=== PATIENT | male | born 1975 ===

== ENCOUNTER 2019-03-15 22:48 | Emergency (ER) | payer OTHER ==
[~2019-03-15] VITALS: Ht 175.3 cm; Wt 127.0 kg
[2019-03-15] MEDS ORDERED: GABA300 PO (23:36)
[2019-03-15] MEDS ORDERED: METF500 PO (23:36)
[2019-03-15] MEDS ORDERED: BASAGLAR K100 UNIT/1 SC (23:37)
[2019-03-15] MEDS ORDERED: Zestril40 MG PO (23:37)
[2019-03-15] MEDS ORDERED: NOVOLOG FL100 UNIT/1 SC (23:37)
[2019-03-16 00:04] LABS: BASOPHILS ABSOLUTE AUTO 0.02 K/mm3 (0.00-0.23); BASOPHILS PERCENT AUTO 0 % (0-2); EOSINOPHILS ABSOLUTE AUTO 0.03 K/mm3 (0.00-0.68); EOSINOPHILS PERCENT AUTO 0 % (0-6); Hematocrit 42.9 % (37.0-53.0); Hemoglobin 13.6 g/dL (13.5-17.5); IMMATURE GRAN ABSOLUTE AUTO 0.06 K/mm3 (0.00-0.10); IMMATURE GRAN PERCENT AUTO 1 % (0-1); LYMPHOCYTES ABSOLUTE AUTO 2.97 K/mm3 (0.84-5.20); LYMPHOCYTES PERCENT AUTO 25 % (21-46); MONOCYTES ABSOLUTE AUTO 0.98 K/mm3 (0.16-1.47); MONOCYTES PERCENT AUTO 8 % (4-13); Mean Corpuscular HGB 28.3 pg (26.0-34.0); Mean Corpuscular HGB Conc 31.7 g/dL (31.5-36.5); Mean Corpuscular Volume 89 fL (80-100); Mean Platelet Volume 10.2 fL (9.1-12.4); NEUTROPHILS ABSOLUTE AUTO 7.92 K/mm3 (1.96-9.15); NEUTROPHILS PERCENT AUTO 66 % (41-73); Platelet Count 367 K/mm3 (150-400); RDW Coefficient Variation 12.6 % (11.7-14.2); RDW Standard Deviation 41.5 fL (35.1-46.3); Red Blood Cell Count 4.81 M/mm3 (4.30-5.90); White Blood Cell Count 11.98 K/mm3 (4.00-11.30)
[2019-03-16 00:23] LABS: Alanine Aminotransfer (ALT/SGP 21 U/L (12-78); Albumin, Blood 2.8 g/dL (3.4-5.0); Albumin/Globulin Ratio 0.5 (0.8-1.8); Alk Phos 88 U/L (50-136); Anion Gap 7 mmol/L (6-16); Aspartate Aminotrans (AST/SGOT 16 U/L (12-37); Beta-hydroxybutyrate 1.1 mg/dL (0.2-2.8); Bilirubin, Total 0.6 mg/dL (0.1-1.0); Blood Urea Nitrogen 27 mg/dL (8-24); Bun/Creatinine Ratio 27.4 (12.0-20.0); CO2, Blood 28 mmol/L (21-32); Calcium, Blood 9.4 mg/dL (8.5-10.1); Chloride, Blood 100 mmol/L (98-108); Creatinine, Blood 0.98 mg/dL (0.60-1.20); Globulin, Blood 5.1 g/dL (2.2-4.0); Glomerular Filtration Rate >60 (60-); Glucose, Blood 337 mg/dL (70-99); Potassium, Blood 4.6 mmol/L (3.5-5.5); Sodium, Blood 135 mmol/L (136-145); Total Protein, Blood 7.9 g/dL (6.4-8.2)
[2019-03-16 03:48] LABS: Source, Urine Clean Catch
[2019-03-16 03:52] LABS: Bilirubin, Urine Neg (Neg); Blood, Urine Neg (Neg); Glucose Qualitative, Urine 4+ (Neg); Ketones, Urine 1+ (Neg); Leukocyte Esterase, Urine 1+ (Neg); Nitrite, Urine Neg (Neg); Protein, Urine 3+ (Neg); Urobilinogen, Urine 1+ (Normal)
[2019-03-16 04:01] LABS: Appearance, Urine Clear (Clear); Color, Urine Yellow (P-Yellow)
[2019-03-16 04:02] LABS: Bacteria Few /hpf; Red Blood Cells, Urine Not Seen /hpf (0-2); Squamous Epithelial Cells Few /hpf (Few); White Blood Cells, Urine 0-2 /hpf (0-5)
[2019-03-16] MEDS ORDERED: CEPH500 PO (04:35)
[2019-05-20] MEDS ORDERED: INSULIN BASAGLAR SC (12:03)
== END 2019-03-16 05:20 | disposition home or self-care (01) ==
LOC: ER 22:48
PROVIDERS: Emergency Medicine
DX: E11.621 Type 2 diabetes mellitus with foot ulcer (principal); L97.519 Non-pressure chronic ulcer of other part of right foot with unspecified severity; L03.115 Cellulitis of right lower limb; E11.65 Type 2 diabetes mellitus with hyperglycemia; I10 Essential (primary) hypertension; F17.200 Nicotine dependence, unspecified, uncomplicated; Z79.4 Long term (current) use of insulin
CPT/HCPCS: 73630; 80053; 81001; 82010; 82947; 85025; 87086; 96365; 99283-25; J1815; J3370

== ENCOUNTER 2019-03-18 11:43 | Inpatient (IN) | payer OTHER ==
[~2019-03-18] VITALS: Ht 175.3 cm; Wt 127.0 kg
[~2019-03-18 11:43] MED LIST: BASAGLAR K100 UNIT/1 SC; CEPH500 PO; GABA300 PO; METF500 PO; NOVOLOG FL100 UNIT/1 SC; Zestril40 MG PO
[2019-03-18 12:11] LABS: BASOPHILS ABSOLUTE AUTO 0.04 K/mm3 (0.00-0.23); BASOPHILS PERCENT AUTO 0 % (0-2); EOSINOPHILS ABSOLUTE AUTO 0.07 K/mm3 (0.00-0.68); EOSINOPHILS PERCENT AUTO 1 % (0-6); Hematocrit 39.7 % (37.0-53.0); Hemoglobin 12.9 g/dL (13.5-17.5); IMMATURE GRAN PERCENT AUTO 1 % (0-1); LYMPHOCYTES ABSOLUTE AUTO 2.53 K/mm3 (0.84-5.20); LYMPHOCYTES PERCENT AUTO 18 % (21-46); MONOCYTES ABSOLUTE AUTO 0.95 K/mm3 (0.16-1.47); MONOCYTES PERCENT AUTO 7 % (4-13); Mean Corpuscular HGB 28.5 pg (26.0-34.0); Mean Corpuscular HGB Conc 32.5 g/dL (31.5-36.5); Mean Corpuscular Volume 88 fL (80-100); Mean Platelet Volume 9.9 fL (9.1-12.4); NEUTROPHILS ABSOLUTE AUTO 10.21 K/mm3 (1.96-9.15); NEUTROPHILS PERCENT AUTO 74 % (41-73); Platelet Count 398 K/mm3 (150-400); RDW Coefficient Variation 12.3 % (11.7-14.2); RDW Standard Deviation 39.7 fL (35.1-46.3); Red Blood Cell Count 4.52 M/mm3 (4.30-5.90)
[2019-03-18] MEDS ORDERED: Rocephin 1g1 G/50 ML IV (12:12)
[2019-03-18] MEDS ORDERED: Percocet 5-3251 EACH PO (12:20)
[2019-03-18] MEDS ORDERED: NAPR550 PO (12:20)
[2019-03-18 12:23] LABS: Alanine Aminotransfer (ALT/SGP 17 U/L (12-78); Albumin, Blood 2.4 g/dL (3.4-5.0); Albumin/Globulin Ratio 0.5 (0.8-1.8); Alk Phos 86 U/L (50-136); Anion Gap 8 mmol/L (6-16); Aspartate Aminotrans (AST/SGOT 13 U/L (12-37); Bilirubin, Total 0.8 mg/dL (0.1-1.0); Blood Urea Nitrogen 18 mg/dL (8-24); Bun/Creatinine Ratio 21.4 (12.0-20.0); CO2, Blood 25 mmol/L (21-32); Calcium, Blood 9.4 mg/dL (8.5-10.1); Chloride, Blood 98 mmol/L (98-108); Creatinine, Blood 0.84 mg/dL (0.60-1.20); Globulin, Blood 5.2 g/dL (2.2-4.0); Glomerular Filtration Rate >60 (60-); Glucose, Blood 295 mg/dL (70-99); Potassium, Blood 4.5 mmol/L (3.5-5.5); Sodium, Blood 131 mmol/L (136-145); Total Protein, Blood 7.6 g/dL (6.4-8.2)
--- NOTE | 2019-03-18 17:53 | NUR ---
1433 PT ADMITTED TO MEDICAL FLOOR VIA W/C, GIRLFRIEND AT BEDSIDE. ASSESSMENT REVEALS ONE WOUND TO EACH PLANTAR. R WOUND APPEARS MORE ACUTE, SURROUNGING TISSUE WITH EDEMA AND REDNESS, BOARDERS OUTLINED IN ER. L HEEL WOUND IS CHRONIC APPEARING, PT REPORTS THAT IT BEGAN SOMETIME IN JULY OF LAST YEAR. A&OX4, INDEPENENT IN ROOM. SPOKEWITH DR. ESTEVES IN THE [place], REVIEVED VERBAL ORDER FOR PODIATRY CONSULT, CONSULT CALLED IN TO DR. MCNALLY'S CELL PHONE.
[2019-03-19 04:57] LABS: BASOPHILS ABSOLUTE AUTO 0.04 K/mm3 (0.00-0.23); BASOPHILS PERCENT AUTO 0 % (0-2); EOSINOPHILS ABSOLUTE AUTO 0.19 K/mm3 (0.00-0.68); EOSINOPHILS PERCENT AUTO 2 % (0-6); Hematocrit 36.4 % (37.0-53.0); Hemoglobin 11.6 g/dL (13.5-17.5); IMMATURE GRAN ABSOLUTE AUTO 0.08 K/mm3 (0.00-0.10); IMMATURE GRAN PERCENT AUTO 1 % (0-1); LYMPHOCYTES ABSOLUTE AUTO 2.43 K/mm3 (0.84-5.20); LYMPHOCYTES PERCENT AUTO 26 % (21-46); MONOCYTES ABSOLUTE AUTO 0.82 K/mm3 (0.16-1.47); MONOCYTES PERCENT AUTO 9 % (4-13); Mean Corpuscular HGB 28.4 pg (26.0-34.0); Mean Corpuscular HGB Conc 31.9 g/dL (31.5-36.5); Mean Corpuscular Volume 89 fL (80-100); Mean Platelet Volume 9.8 fL (9.1-12.4); NEUTROPHILS ABSOLUTE AUTO 5.84 K/mm3 (1.96-9.15); NEUTROPHILS PERCENT AUTO 62 % (41-73); Platelet Count 377 K/mm3 (150-400); RDW Coefficient Variation 12.5 % (11.7-14.2); RDW Standard Deviation 40.3 fL (35.1-46.3); Red Blood Cell Count 4.09 M/mm3 (4.30-5.90)
--- NOTE | 2019-03-19 05:06 | NUR ---
SHIFT SUMMARY HOSPITALIST IN TO SEE PT AND WRITE ORDERS. PT HAS BEEN NPO AFTER MIDNIGHT. PT SLEPT FAIR. PT ALERT AND ORIENTED. SUPERVISOR FINISH END TO COME IN THIS AM. NO ACUTE EVENTS NOTED DURING THE NIGHT, WILL CONTINUE TO MONITOR.
[2019-03-19 05:11] LABS: International Normalized Ratio 1.07; Prothrombin Time Results 11.3 Sec (9.7-11.5)
[2019-03-19 05:21] LABS: Anion Gap 6 mmol/L (6-16); Blood Urea Nitrogen 21 mg/dL (8-24); Bun/Creatinine Ratio 18.1 (12.0-20.0); CHOL/HDL RATIO 5.1; CO2, Blood 27 mmol/L (21-32); Calcium, Blood 8.4 mg/dL (8.5-10.1); Chloride, Blood 103 mmol/L (98-108); Cholesterol 107 mg/dL (50-200); Creatinine, Blood 1.16 mg/dL (0.60-1.20); Glomerular Filtration Rate >60 (60-); Glucose, Blood 256 mg/dL (70-99); HDL Cholesterol 21 mg/dL (>39); LDL/HDL RATIO 2.8; Low Density Lipoprotein Chol 58 mg/dL (0-110); Potassium, Blood 4.4 mmol/L (3.5-5.5); Sodium, Blood 136 mmol/L (136-145); Triglycerides 138 mg/dL (30-160); Very Low Density Lipoprot Chol 27 mg/dL (6-32)
[2019-03-19 13:12] LABS: U Amphetamine Screen DETECTED; U Barbituate Screen Not Detected; U Benzodiazapine Screen Not Detected; U Buprenorphine Screen Not Detected; U Cannabinoids Screen Not Detected; U Cocaine Screen Not Detected; U Methadone Screen Not Detected; U Methamphetamine Screen DETECTED; U Opiates Screen Not Detected; U Oxycodone Screen Not Detected; U Phencyclidine Screen Not Detected; U Propoxyphene Screen Not Detected
--- NOTE | 2019-03-19 18:58 | NUR ---
PT. SLEEPING, HAS BEEN EXTREMELY SLEEPY THIS SHIFT. TOX SCREEN SHOWED POSITIVE FOR AMPHETAMINE AND METHAMPHETIMINE. DR. FOWLER NOTIFIED ME HE WOULD PROBABLY DO THE DEBRIDING AT BEDSIDE IN AM. IF UNABLE TO PLEASE MAKE PATIENT NPO AFTER MIDNOC TONIGHT. WOUND HAS S/S OOZING AND DECUB NOTED ON BALL OF RIGHT FOOT AND HEEL OF LEFT FOOT.
--- NOTE | 2019-03-20 07:54 | NUR ---
NOC SHIFT SUMMARY PT PLEASANT AND COOPERATIVE WITH CARE. AAOX4. NO COMPLAINTS THIS NIGHT. SLEPT MUCH OF NIGHT. HAS BEEN NPO EXCEPT SIPS OF WATER SINCE MIDNIGHT. VSS. REPORT ON ONCOMING RN.
[2019-03-20 09:41] LABS: Creatinine, Blood 1.31 mg/dL (0.60-1.20)
[2019-03-20 16:26] LABS: Vancomycin, Random 15.6 ug/mL
--- NOTE | 2019-03-20 18:34 | NUR ---
PT. SITTING ON EDGE OF BED WITH SURGICAL SHOE IN PLACE. DR. MCNALLY CAME IN DID SOME DEBRIDING ON THE DECUB. COVERED WITH XEROFORM GAUZE, KERLIX AND MAURY WRAP. SUGGESTED OUTPT. WOUND CARE DOWNSTAIRS WELL ONGOING ANTIBIOTICS. LANTUS ADDED TODAY WELL 5 UNITS HUMALOG WITH MEALS AND MEDIUM S.S. AC/HS. DOES NOT SEEM TO HAVE MADE MUCH DIFFERENCE IN BLOOD SUGARS. NO OTHER NOTEABLE CHANGES THIS SHIFT.
--- NOTE | 2019-03-21 04:46 | NUR ---
SHIFT SUMMARY: PT IS ALERT AND ORIENTED. PT IS CALM AND COOPERATIVE WITH CARE. PT CALLS APPROPRIATELY. PT IS INDEPENDENT IN THE ROOM. PT DENIES PAIN, NAUSEA, VOMITING, AND SOB. PT SLEPT MUCH OF THE NIGHT WHEN NOT DISTURBED. FLUIDS RUNNING ORDERED. NO ACUTE CHANGES OR COMPLICATIONS. BED IN LOW POSITION, CALL LIGHT WITHIN REACH. WILL REPORT TO DAY NURSE.
[2019-03-21 11:35] LABS: Creatinine, Blood 1.39 mg/dL (0.60-1.20); Vancomycin, Trough 15.8 ug/mL (5.0-10.0)
[2019-03-21 12:19] LABS: BASOPHILS ABSOLUTE AUTO 0.04 K/mm3 (0.00-0.23); BASOPHILS PERCENT AUTO 1 % (0-2); EOSINOPHILS ABSOLUTE AUTO 0.24 K/mm3 (0.00-0.68); EOSINOPHILS PERCENT AUTO 3 % (0-6); Hematocrit 37.3 % (37.0-53.0); Hemoglobin 11.7 g/dL (13.5-17.5); IMMATURE GRAN ABSOLUTE AUTO 0.05 K/mm3 (0.00-0.10); IMMATURE GRAN PERCENT AUTO 1 % (0-1); LYMPHOCYTES ABSOLUTE AUTO 2.24 K/mm3 (0.84-5.20); LYMPHOCYTES PERCENT AUTO 25 % (21-46); MONOCYTES ABSOLUTE AUTO 0.65 K/mm3 (0.16-1.47); MONOCYTES PERCENT AUTO 7 % (4-13); Mean Corpuscular HGB 28.3 pg (26.0-34.0); Mean Corpuscular HGB Conc 31.4 g/dL (31.5-36.5); Mean Corpuscular Volume 90 fL (80-100); Mean Platelet Volume 9.4 fL (9.1-12.4); NEUTROPHILS ABSOLUTE AUTO 5.65 K/mm3 (1.96-9.15); NEUTROPHILS PERCENT AUTO 64 % (41-73); Platelet Count 423 K/mm3 (150-400); RDW Coefficient Variation 12.4 % (11.7-14.2); RDW Standard Deviation 40.9 fL (35.1-46.3); Red Blood Cell Count 4.14 M/mm3 (4.30-5.90); White Blood Cell Count 8.87 K/mm3 (4.00-11.30)
[2019-03-21 12:35] LABS: Anion Gap 5 mmol/L (6-16); Blood Urea Nitrogen 15 mg/dL (8-24); CO2, Blood 25 mmol/L (21-32); Calcium, Blood 7.9 mg/dL (8.5-10.1); Chloride, Blood 110 mmol/L (98-108); Creatinine, Blood 1.36 mg/dL (0.60-1.20); Glomerular Filtration Rate >60 (60-); Glucose, Blood 215 mg/dL (70-99); Potassium, Blood 4.1 mmol/L (3.5-5.5); Sodium, Blood 140 mmol/L (136-145)
[2019-03-21] MEDS ORDERED: Augmentin 875-1 EACH PO (17:40)
[2019-03-21] MEDS ORDERED: LACT PO (17:40)
[2019-03-21] MEDS ORDERED: Bactrim Ds Tab1 EACH PO (17:41)
[2019-03-21] MEDS ORDERED: Tylenol325 MG PO (17:44)
--- NOTE | 2019-03-21 18:32 | NUR ---
PATIENT D/C'D TO HOME WITH FAMILY. RX MEDICATIONS FAXED TO [facility]. D/C INSTRUCTIONS AND EDUCATION DISCUSSED WITH PATIENT AND COPY PROVIDED. WOUND CLINIC APPT MADE FOR Monday03/26/19 AT 0730. PHYSICIAN CODER NOTIFIED THAT PATIENT WILL NEED FOLLOW UP APPTS MADE WITH [facility] TECHNICAL SERVICES SPECIALIST. PATIENT DENIES ANY FURTHER QUESTIONS OR CONCERNS.
[2019-05-20] MEDS ORDERED: INSULIN BASAGLAR SC (12:03)
== END 2019-03-21 18:32 | disposition home or self-care (01) | DRG 638 ==
LOC: ER 11:43 → MEDS 12:36 → ENPENDDIS 03-21 16:43 → MEDS 03-21 18:32
PROVIDERS: Emergency Medicine; Internal Medicine; Nurse Practitioner Acute Care; Pharmacist; ADMIT Internal Medicine
PROC: 0HDMXZZ Extraction of Right Foot Skin, External Approach (ICD-10-PCS; principal; 2019-03-20)
DX: E11.621 Type 2 diabetes mellitus with foot ulcer (principal); Z68.41 Body mass index [BMI] 40.0-44.9, adult; L97.413 Non-pressure chronic ulcer of right heel and midfoot with necrosis of muscle; E11.42 Type 2 diabetes mellitus with diabetic polyneuropathy; I10 Essential (primary) hypertension; E78.5 Hyperlipidemia, unspecified; E66.01 Morbid (severe) obesity due to excess calories; L03.031 Cellulitis of right toe; Z79.84 Long term (current) use of oral hypoglycemic drugs; Z79.4 Long term (current) use of insulin; Z79.899 Other long term (current) drug therapy
CPT/HCPCS: 36415; 73630; 73720; 80048; 80053; 80061; 80202; 82565; 82947; 83036; 85025; 85610; 85651; 86140; 87040; 96374; 96375; 99284-25; A9270; A9577; J1170; J2543; J3370; J7030; J7050

== ENCOUNTER 2019-03-23 14:31 | Emergency (ER) | payer OTHER ==
[~2019-03-23] VITALS: Ht 175.3 cm; Wt 131.5 kg
[~2019-03-23 14:31] MED LIST changes: -INSULIN BASAGLAR SC; -Zofran4 MG PO
[2019-03-23] MEDS ORDERED: Zofran4 MG PO (17:43)
[2019-05-20] MEDS ORDERED: INSULIN BASAGLAR SC (12:03)
== END 2019-03-23 18:14 | disposition home or self-care (01) ==
LOC: ER 14:31
DX: E11.621 Type 2 diabetes mellitus with foot ulcer (principal); L97.509 Non-pressure chronic ulcer of other part of unspecified foot with unspecified severity; R19.7 Diarrhea, unspecified; R11.2 Nausea with vomiting, unspecified; I10 Essential (primary) hypertension; Z79.4 Long term (current) use of insulin; Z79.899 Other long term (current) drug therapy
CPT/HCPCS: 96361; 96374; 99283-25; J2405; J7030

== ENCOUNTER → 2019-03-23 | Outpatient (CLI) | payer OTHER ==
[~2019-03-23] MED LIST changes: +Augmentin 875-1 EACH PO; +Bactrim Ds Tab1 EACH PO; +INSULIN BASAGLAR SC; +LACT PO; +NAPR550 PO; +Percocet 5-3251 EACH PO; +Rocephin 1g1 G/50 ML IV; +Tylenol325 MG PO; +Zofran4 MG PO
[2019-03-23 13:41] LABS: BASOPHILS ABSOLUTE AUTO 0.03 K/mm3 (0.00-0.23); BASOPHILS PERCENT AUTO 0 % (0-2); EOSINOPHILS PERCENT AUTO 2 % (0-6); Hematocrit 37.6 % (37.0-53.0); Hemoglobin 12.4 g/dL (13.5-17.5); IMMATURE GRAN ABSOLUTE AUTO 0.05 K/mm3 (0.00-0.10); IMMATURE GRAN PERCENT AUTO 1 % (0-1); LYMPHOCYTES ABSOLUTE AUTO 1.94 K/mm3 (0.84-5.20); LYMPHOCYTES PERCENT AUTO 20 % (21-46); MONOCYTES ABSOLUTE AUTO 0.53 K/mm3 (0.16-1.47); MONOCYTES PERCENT AUTO 6 % (4-13); Mean Corpuscular HGB 28.4 pg (26.0-34.0); Mean Platelet Volume 9.2 fL (9.1-12.4); NEUTROPHILS ABSOLUTE AUTO 6.74 K/mm3 (1.96-9.15); NEUTROPHILS PERCENT AUTO 71 % (41-73); Platelet Count 477 K/mm3 (150-400); RDW Coefficient Variation 12.4 % (11.7-14.2); RDW Standard Deviation 39.4 fL (35.1-46.3); Red Blood Cell Count 4.36 M/mm3 (4.30-5.90); White Blood Cell Count 9.49 K/mm3 (4.00-11.30)
[2019-03-23 13:44] LABS: Mean Corpuscular Volume 86 fL (80-100)
[2019-03-23 13:49] LABS: Albumin, Blood 2.4 g/dL (3.4-5.0); Albumin/Globulin Ratio 0.4 (0.8-1.8); Bilirubin, Total 0.5 mg/dL (0.1-1.0); Bun/Creatinine Ratio 7.9 (12.0-20.0); Creatinine, Blood 1.52 mg/dL (0.60-1.20); Globulin, Blood 5.7 g/dL (2.2-4.0); Potassium, Blood 4.5 mmol/L (3.5-5.5); Total Protein, Blood 8.1 g/dL (6.4-8.2)
== END | disposition home or self-care (01) ==
LOC: LAB EV 13:32 → LAB SHORT 13:32
PROVIDERS: Physician Assistant
DX: R10.9 Unspecified abdominal pain (principal)
CPT/HCPCS: 80053; 85025

== ENCOUNTER 2019-03-26 07:40 | Day surgery (SDC) | payer OTHER ==
[~2019-03-26 07:40] MED LIST changes: +Zofran4 MG PO
[2019-05-20] MEDS ORDERED: INSULIN BASAGLAR SC (12:03)
== END 2019-03-26 23:00 | disposition home or self-care (01) ==
LOC: WOUND 07:40
DX: E11.621 Type 2 diabetes mellitus with foot ulcer (principal); L97.512 Non-pressure chronic ulcer of other part of right foot with fat layer exposed; L97.412 Non-pressure chronic ulcer of right heel and midfoot with fat layer exposed; E11.42 Type 2 diabetes mellitus with diabetic polyneuropathy; I10 Essential (primary) hypertension; E78.5 Hyperlipidemia, unspecified; Z87.891 Personal history of nicotine dependence
CPT/HCPCS: G0463

== ENCOUNTER 2019-04-11 00:10 | Day surgery (SDC) | payer OTHER ==
[2019-05-20] MEDS ORDERED: INSULIN BASAGLAR SC (12:03)
== END 2019-04-11 22:46 | disposition home or self-care (01) ==
LOC: WOUND 00:10
DX: E11.621 Type 2 diabetes mellitus with foot ulcer (principal); L97.519 Non-pressure chronic ulcer of other part of right foot with unspecified severity; E11.42 Type 2 diabetes mellitus with diabetic polyneuropathy; I10 Essential (primary) hypertension; E78.5 Hyperlipidemia, unspecified
CPT/HCPCS: G0463

== ENCOUNTER 2019-04-18 13:20 | Day surgery (SDC) | payer OTHER ==
[2019-05-20] MEDS ORDERED: INSULIN BASAGLAR SC (12:03)
== END 2019-04-18 23:05 | disposition home or self-care (01) ==
LOC: WOUND 13:20
DX: E11.621 Type 2 diabetes mellitus with foot ulcer (principal); L97.513 Non-pressure chronic ulcer of other part of right foot with necrosis of muscle; E11.42 Type 2 diabetes mellitus with diabetic polyneuropathy; I10 Essential (primary) hypertension; E78.5 Hyperlipidemia, unspecified
CPT/HCPCS: 87071; 87075; 87076; 87102; 87185; 87205

== ENCOUNTER 2019-04-25 13:33 | Day surgery (SDC) | payer OTHER ==
[2019-05-20] MEDS ORDERED: INSULIN BASAGLAR SC (12:03)
== END 2019-04-25 23:29 | disposition home or self-care (01) ==
LOC: WOUND 13:33
DX: E11.621 Type 2 diabetes mellitus with foot ulcer (principal); L97.513 Non-pressure chronic ulcer of other part of right foot with necrosis of muscle; I10 Essential (primary) hypertension; E78.5 Hyperlipidemia, unspecified; E11.42 Type 2 diabetes mellitus with diabetic polyneuropathy

== ENCOUNTER 2019-05-02 13:31 | Day surgery (SDC) | payer OTHER ==
[2019-05-20] MEDS ORDERED: INSULIN BASAGLAR SC (12:03)
== END 2019-05-02 23:36 | disposition home or self-care (01) ==
LOC: WOUND 13:31
DX: E11.621 Type 2 diabetes mellitus with foot ulcer (principal); L97.518 Non-pressure chronic ulcer of other part of right foot with other specified severity; E11.42 Type 2 diabetes mellitus with diabetic polyneuropathy; I10 Essential (primary) hypertension; E78.5 Hyperlipidemia, unspecified
CPT/HCPCS: G0463

== ENCOUNTER 2019-05-09 00:15 | Day surgery (SDC) | payer OTHER ==
[2019-05-20] MEDS ORDERED: INSULIN BASAGLAR SC (12:03)
== END 2019-05-09 22:45 | disposition home or self-care (01) ==
LOC: WOUND 00:15
DX: E11.621 Type 2 diabetes mellitus with foot ulcer (principal); L97.518 Non-pressure chronic ulcer of other part of right foot with other specified severity; E11.42 Type 2 diabetes mellitus with diabetic polyneuropathy; I10 Essential (primary) hypertension; E78.5 Hyperlipidemia, unspecified
CPT/HCPCS: G0463

== ENCOUNTER 2019-05-16 00:33 | Day surgery (SDC) | payer OTHER ==
[2019-05-20] MEDS ORDERED: INSULIN BASAGLAR SC (12:03)
== END 2019-05-16 23:30 | disposition home or self-care (01) ==
LOC: WOUND 00:33
DX: E11.621 Type 2 diabetes mellitus with foot ulcer (principal); L97.513 Non-pressure chronic ulcer of other part of right foot with necrosis of muscle; E11.42 Type 2 diabetes mellitus with diabetic polyneuropathy; I10 Essential (primary) hypertension; E78.5 Hyperlipidemia, unspecified

== ENCOUNTER 2019-05-21 12:50 | Day surgery (SDC) | payer OTHER ==
[~2019-05-21 12:50] MED LIST changes: +INSULIN BASAGLAR SC
--- NOTE | 2019-05-21 14:27 | NUR ---
History, Chart, Medications and Allergies reviewed before start of procedure. Patient States Post-Procedure ride home has been arranged.
--- NOTE | 2019-05-21 15:36 | NUR ---
05/21/19 1536 Violet Khan ALL COUNTS CORRECT.
--- NOTE | 2019-05-21 16:40 | NUR ---
FROM PACU TO [facility] VSS LOW BP COMPLAINTS OF FEELING HOT PLACED A FANBLOWING ON PATIENT
--- NOTE | 2019-05-21 17:51 | NUR ---
CALLED AND TALKED TO DR ALVAREZ ABOUT LOW BP. STATES IF PATIENT REMAIN UN SYMPTOMATIC AFTER GIVING 500 CC BOLUS MAY DISCHARGE HOME. ALSO TO SIT APTIENT UP AND GET HIM TO HYDRATE.
--- NOTE | 2019-05-21 18:14 | NUR ---
PT UP TO WHEELCHAIR, TOLERATED WELL. VSS. DENIES NO DIZZINESS. STABLE. Discharge instructions reviewed with patient. Patient verbalizes understanding. Copy given to patient to take home. Dressing to procedure site clean, dry, intact with no visible drainage, swelling, erythema or bruising noted. Patient States Post-Procedure ride home has been arranged. Discharged via wheelchair to private car for ride home.
== END 2019-05-21 18:14 | disposition home or self-care (01) ==
LOC: ORSCMMR 12:50 → ORSCSDS 14:00 → ORSCMMR 14:30 → ORSCSDS 14:30 → ORSCMMR 18:14
PROVIDERS: Podiatrist Foot & Ankle Surgery
PROC: 0Y6M0ZB Detachment at Right Foot, Partial 2nd Ray, Open Approach (ICD-10-PCS; principal; 2019-05-21 14:30)
PROC: 0Y6M0ZD Detachment at Right Foot, Partial 4th Ray, Open Approach (ICD-10-PCS; principal; 2019-05-21 14:30)
PROC: 0Y6M0Z9 Detachment at Right Foot, Partial 1st Ray, Open Approach (ICD-10-PCS; principal; 2019-05-21 14:30)
PROC: 0Y6M0ZF Detachment at Right Foot, Partial 5th Ray, Open Approach (ICD-10-PCS; principal; 2019-05-21 14:30)
PROC: 0Y6M0ZC Detachment at Right Foot, Partial 3rd Ray, Open Approach (ICD-10-PCS; principal; 2019-05-21 14:30)
DX: L03.031 Cellulitis of right toe (principal); L89.893 Pressure ulcer of other site, stage 3; E11.65 Type 2 diabetes mellitus with hyperglycemia; E11.40 Type 2 diabetes mellitus with diabetic neuropathy, unspecified; E11.621 Type 2 diabetes mellitus with foot ulcer; I10 Essential (primary) hypertension; E78.5 Hyperlipidemia, unspecified; Z79.4 Long term (current) use of insulin; Z79.899 Other long term (current) drug therapy; E66.01 Morbid (severe) obesity due to excess calories; Z68.41 Body mass index [BMI] 40.0-44.9, adult; Z87.891 Personal history of nicotine dependence
CPT/HCPCS: 82947; 88307; 88311; J0690; J2250; J2370; J2405; J2704; J2765; J3010; J7120

== ENCOUNTER 2019-06-28 08:47 | Day surgery (SDC) | payer OTHER | END 2019-06-28 23:50 | disposition home or self-care (01) | LOC: WOUND | DX: T87.81 Dehiscence of amputation stump (principal); I10 Essential (primary) hypertension; E11.42 Type 2 diabetes mellitus with diabetic polyneuropathy; E11.621 Type 2 diabetes mellitus with foot ulcer; L97.509 Non-pressure chronic ulcer of other part of unspecified foot with unspecified severity; E78.5 Hyperlipidemia, unspecified; Z79.4 Long term (current) use of insulin; Z87.891 Personal history of nicotine dependence; Y83.8 Other surgical procedures as the cause of abnormal reaction of the patient, or of later complication, without mention of misadventure at the time of the procedure | CPT/HCPCS: G0463 ==

== ENCOUNTER 2019-07-01 08:00 | Day surgery (SDC) | payer OTHER | END 2019-07-01 22:57 | disposition home or self-care (01) | LOC: WOUND 08:00 | DX: T87.81 Dehiscence of amputation stump (principal); T87.53 Necrosis of amputation stump, right lower extremity; E11.621 Type 2 diabetes mellitus with foot ulcer; L97.512 Non-pressure chronic ulcer of other part of right foot with fat layer exposed; E11.52 Type 2 diabetes mellitus with diabetic peripheral angiopathy with gangrene; I96 Gangrene, not elsewhere classified; I10 Essential (primary) hypertension; E11.42 Type 2 diabetes mellitus with diabetic polyneuropathy; E78.5 Hyperlipidemia, unspecified; Z79.899 Other long term (current) drug therapy; Z79.4 Long term (current) use of insulin; Y83.5 Amputation of limb(s) as the cause of abnormal reaction of the patient, or of later complication, without mention of misadventure at the time of the procedure ==

== ENCOUNTER 2019-07-03 00:30 | Day surgery (SDC) | payer OTHER | END 2019-07-03 23:05 | disposition home or self-care (01) | LOC: WOUND 00:30 | DX: T87.81 Dehiscence of amputation stump (principal); E11.621 Type 2 diabetes mellitus with foot ulcer; L97.515 Non-pressure chronic ulcer of other part of right foot with muscle involvement without evidence of necrosis; E11.40 Type 2 diabetes mellitus with diabetic neuropathy, unspecified; I10 Essential (primary) hypertension ==

== ENCOUNTER 2019-07-05 00:41 | Day surgery (SDC) | payer OTHER | END 2019-07-05 23:27 | disposition home or self-care (01) | LOC: WOUND 00:41 | DX: T87.81 Dehiscence of amputation stump (principal); E11.621 Type 2 diabetes mellitus with foot ulcer; L97.515 Non-pressure chronic ulcer of other part of right foot with muscle involvement without evidence of necrosis; I10 Essential (primary) hypertension; E11.42 Type 2 diabetes mellitus with diabetic polyneuropathy ==

== ENCOUNTER 2019-07-08 00:20 | Day surgery (SDC) | payer OTHER | END 2019-07-08 22:49 | disposition home or self-care (01) | LOC: WOUND 00:20 | DX: T87.81 Dehiscence of amputation stump (principal); E11.621 Type 2 diabetes mellitus with foot ulcer; L97.516 Non-pressure chronic ulcer of other part of right foot with bone involvement without evidence of necrosis; I10 Essential (primary) hypertension; E11.42 Type 2 diabetes mellitus with diabetic polyneuropathy ==

== ENCOUNTER 2019-07-10 00:33 | Day surgery (SDC) | payer OTHER | END 2019-07-10 22:45 | disposition home or self-care (01) | LOC: WOUND 00:33 | DX: T87.81 Dehiscence of amputation stump (principal); E11.621 Type 2 diabetes mellitus with foot ulcer; E11.42 Type 2 diabetes mellitus with diabetic polyneuropathy; E78.5 Hyperlipidemia, unspecified; I10 Essential (primary) hypertension; L97.909 Non-pressure chronic ulcer of unspecified part of unspecified lower leg with unspecified severity; Z79.84 Long term (current) use of oral hypoglycemic drugs; Z79.899 Other long term (current) drug therapy ==

== ENCOUNTER 2019-07-17 07:59 | Day surgery (SDC) | payer OTHER | END 2019-07-17 23:05 | disposition home or self-care (01) | LOC: WOUND 07:59 | DX: T87.81 Dehiscence of amputation stump (principal); E11.51 Type 2 diabetes mellitus with diabetic peripheral angiopathy without gangrene; I10 Essential (primary) hypertension; E78.5 Hyperlipidemia, unspecified; Z79.899 Other long term (current) drug therapy; Z79.4 Long term (current) use of insulin ==

== ENCOUNTER 2019-07-19 00:35 | Day surgery (SDC) | payer OTHER | END 2019-07-19 23:20 | disposition home or self-care (01) | LOC: WOUND 00:35 | DX: T87.81 Dehiscence of amputation stump (principal); T87.53 Necrosis of amputation stump, right lower extremity; E11.52 Type 2 diabetes mellitus with diabetic peripheral angiopathy with gangrene; I96 Gangrene, not elsewhere classified; E11.621 Type 2 diabetes mellitus with foot ulcer; L97.512 Non-pressure chronic ulcer of other part of right foot with fat layer exposed; E11.42 Type 2 diabetes mellitus with diabetic polyneuropathy; E78.5 Hyperlipidemia, unspecified; I10 Essential (primary) hypertension; Z79.4 Long term (current) use of insulin; Z79.899 Other long term (current) drug therapy; Y83.5 Amputation of limb(s) as the cause of abnormal reaction of the patient, or of later complication, without mention of misadventure at the time of the procedure ==

== ENCOUNTER 2019-07-24 00:09 | Day surgery (SDC) | payer OTHER | END 2019-07-24 22:58 | disposition home or self-care (01) | LOC: WOUND 00:09 | DX: T87.81 Dehiscence of amputation stump (principal); T87.53 Necrosis of amputation stump, right lower extremity; E11.621 Type 2 diabetes mellitus with foot ulcer; L97.516 Non-pressure chronic ulcer of other part of right foot with bone involvement without evidence of necrosis; E11.42 Type 2 diabetes mellitus with diabetic polyneuropathy; E11.52 Type 2 diabetes mellitus with diabetic peripheral angiopathy with gangrene; I96 Gangrene, not elsewhere classified; I10 Essential (primary) hypertension; E78.5 Hyperlipidemia, unspecified; E66.01 Morbid (severe) obesity due to excess calories; Z68.42 Body mass index [BMI] 45.0-49.9, adult; Z79.4 Long term (current) use of insulin; Z79.899 Other long term (current) drug therapy; Y83.5 Amputation of limb(s) as the cause of abnormal reaction of the patient, or of later complication, without mention of misadventure at the time of the procedure ==

== ENCOUNTER 2019-07-26 08:06 | Day surgery (SDC) | payer OTHER | END 2019-07-26 23:07 | disposition home or self-care (01) | LOC: WOUND 08:06 | DX: T87.81 Dehiscence of amputation stump (principal); E11.42 Type 2 diabetes mellitus with diabetic polyneuropathy; I10 Essential (primary) hypertension; E78.5 Hyperlipidemia, unspecified; Z79.4 Long term (current) use of insulin; Z79.899 Other long term (current) drug therapy | CPT/HCPCS: 87071; 87075; 87077; 87185; 87186; 87205 ==

== ENCOUNTER 2019-08-02 08:04 | Day surgery (SDC) | payer OTHER | END 2019-08-02 22:58 | disposition home or self-care (01) | LOC: WOUND 08:04 | DX: E11.621 Type 2 diabetes mellitus with foot ulcer (principal); L97.518 Non-pressure chronic ulcer of other part of right foot with other specified severity; E11.42 Type 2 diabetes mellitus with diabetic polyneuropathy; I10 Essential (primary) hypertension; E78.5 Hyperlipidemia, unspecified; Z79.4 Long term (current) use of insulin; Z79.899 Other long term (current) drug therapy ==

== ENCOUNTER 2019-08-05 08:04 | Day surgery (SDC) | payer OTHER | END 2019-08-05 23:15 | disposition home or self-care (01) | LOC: WOUND 08:04 | DX: T87.81 Dehiscence of amputation stump (principal); E11.621 Type 2 diabetes mellitus with foot ulcer; L97.518 Non-pressure chronic ulcer of other part of right foot with other specified severity; E11.42 Type 2 diabetes mellitus with diabetic polyneuropathy; I10 Essential (primary) hypertension; E78.5 Hyperlipidemia, unspecified; Z79.4 Long term (current) use of insulin; Z79.899 Other long term (current) drug therapy ==

== ENCOUNTER 2019-08-12 08:18 | Day surgery (SDC) | payer OTHER | END 2019-08-12 23:08 | disposition home or self-care (01) | LOC: WOUND 08:18 | DX: T87.81 Dehiscence of amputation stump (principal); T87.50 Necrosis of amputation stump, unspecified extremity; E11.621 Type 2 diabetes mellitus with foot ulcer; L97.512 Non-pressure chronic ulcer of other part of right foot with fat layer exposed; E11.52 Type 2 diabetes mellitus with diabetic peripheral angiopathy with gangrene; E11.42 Type 2 diabetes mellitus with diabetic polyneuropathy; I10 Essential (primary) hypertension; E78.5 Hyperlipidemia, unspecified; Z79.4 Long term (current) use of insulin; Z79.899 Other long term (current) drug therapy; Y83.5 Amputation of limb(s) as the cause of abnormal reaction of the patient, or of later complication, without mention of misadventure at the time of the procedure ==

== ENCOUNTER 2019-08-19 08:15 | Day surgery (SDC) | payer OTHER | END 2019-08-19 22:45 | disposition home or self-care (01) | LOC: WOUND 08:15 | DX: E11.621 Type 2 diabetes mellitus with foot ulcer (principal); L97.518 Non-pressure chronic ulcer of other part of right foot with other specified severity; E11.42 Type 2 diabetes mellitus with diabetic polyneuropathy; I10 Essential (primary) hypertension; E78.5 Hyperlipidemia, unspecified; Z89.431 Acquired absence of right foot; Z79.4 Long term (current) use of insulin; Z79.899 Other long term (current) drug therapy ==

== ENCOUNTER 2019-08-26 08:15 | Day surgery (SDC) | payer OTHER | END 2019-08-26 22:51 | disposition home or self-care (01) | LOC: WOUND 08:15 | DX: T87.81 Dehiscence of amputation stump (principal); T87.53 Necrosis of amputation stump, right lower extremity; E11.621 Type 2 diabetes mellitus with foot ulcer; L97.512 Non-pressure chronic ulcer of other part of right foot with fat layer exposed; E11.52 Type 2 diabetes mellitus with diabetic peripheral angiopathy with gangrene; I96 Gangrene, not elsewhere classified; E11.42 Type 2 diabetes mellitus with diabetic polyneuropathy; I10 Essential (primary) hypertension; E78.5 Hyperlipidemia, unspecified; Z79.4 Long term (current) use of insulin; Z79.899 Other long term (current) drug therapy; Y83.5 Amputation of limb(s) as the cause of abnormal reaction of the patient, or of later complication, without mention of misadventure at the time of the procedure ==

== ENCOUNTER 2019-09-02 08:08 | Day surgery (SDC) | payer OTHER | END 2019-09-02 22:57 | disposition home or self-care (01) | LOC: WOUND 08:08 | DX: E11.621 Type 2 diabetes mellitus with foot ulcer (principal); E11.42 Type 2 diabetes mellitus with diabetic polyneuropathy; L97.518 Non-pressure chronic ulcer of other part of right foot with other specified severity; I10 Essential (primary) hypertension; E78.5 Hyperlipidemia, unspecified; Z79.4 Long term (current) use of insulin; Z79.899 Other long term (current) drug therapy ==

== ENCOUNTER 2019-09-09 08:05 | Day surgery (SDC) | payer OTHER | END 2019-09-09 23:03 | disposition home or self-care (01) | LOC: WOUND 08:05 | DX: E11.621 Type 2 diabetes mellitus with foot ulcer (principal); L97.518 Non-pressure chronic ulcer of other part of right foot with other specified severity; E11.42 Type 2 diabetes mellitus with diabetic polyneuropathy; I10 Essential (primary) hypertension; E78.5 Hyperlipidemia, unspecified; Z89.431 Acquired absence of right foot; Z79.4 Long term (current) use of insulin; Z79.899 Other long term (current) drug therapy ==

== ENCOUNTER 2019-09-16 08:09 | Day surgery (SDC) | payer OTHER | END 2019-09-16 22:44 | disposition home or self-care (01) | LOC: WOUND 08:09 | DX: T87.81 Dehiscence of amputation stump (principal); T87.53 Necrosis of amputation stump, right lower extremity; E11.621 Type 2 diabetes mellitus with foot ulcer; L97.512 Non-pressure chronic ulcer of other part of right foot with fat layer exposed; E11.52 Type 2 diabetes mellitus with diabetic peripheral angiopathy with gangrene; I96 Gangrene, not elsewhere classified; E11.42 Type 2 diabetes mellitus with diabetic polyneuropathy; I10 Essential (primary) hypertension; E78.5 Hyperlipidemia, unspecified; Z79.4 Long term (current) use of insulin; Z79.899 Other long term (current) drug therapy; Y83.5 Amputation of limb(s) as the cause of abnormal reaction of the patient, or of later complication, without mention of misadventure at the time of the procedure ==

== ENCOUNTER 2019-09-23 07:43 | Day surgery (SDC) | payer OTHER | END 2019-09-23 22:44 | disposition home or self-care (01) | LOC: WOUND 07:43 | DX: E11.621 Type 2 diabetes mellitus with foot ulcer (principal); E11.42 Type 2 diabetes mellitus with diabetic polyneuropathy; L97.518 Non-pressure chronic ulcer of other part of right foot with other specified severity; I10 Essential (primary) hypertension; E78.5 Hyperlipidemia, unspecified; Z79.4 Long term (current) use of insulin; Z79.899 Other long term (current) drug therapy ==

== ENCOUNTER 2019-09-30 00:17 | Day surgery (SDC) | payer OTHER | END 2019-09-30 22:43 | disposition home or self-care (01) | LOC: WOUND 00:17 | DX: E11.621 Type 2 diabetes mellitus with foot ulcer (principal); E11.42 Type 2 diabetes mellitus with diabetic polyneuropathy; L97.518 Non-pressure chronic ulcer of other part of right foot with other specified severity; I10 Essential (primary) hypertension; E78.5 Hyperlipidemia, unspecified; Z79.4 Long term (current) use of insulin; Z79.899 Other long term (current) drug therapy ==

== ENCOUNTER 2019-10-07 00:19 | Day surgery (SDC) | payer OTHER | END 2019-10-07 23:13 | disposition home or self-care (01) | LOC: WOUND 00:19 | DX: E11.621 Type 2 diabetes mellitus with foot ulcer (principal); L97.518 Non-pressure chronic ulcer of other part of right foot with other specified severity; E11.42 Type 2 diabetes mellitus with diabetic polyneuropathy; I10 Essential (primary) hypertension; E78.5 Hyperlipidemia, unspecified; Z79.899 Other long term (current) drug therapy; Z79.4 Long term (current) use of insulin | CPT/HCPCS: G0463 ==

== ENCOUNTER 2021-09-01 10:44 | Day surgery (SDC) | payer OTHER | END 2021-09-01 23:18 | disposition home or self-care (01) | LOC: WOUND 10:44 | PROC: 0JBR0ZZ Excision of Left Foot Subcutaneous Tissue and Fascia, Open Approach (ICD-10-PCS; principal; 2021-09-01) | DX: E11.621 Type 2 diabetes mellitus with foot ulcer (principal); L97.522 Non-pressure chronic ulcer of other part of left foot with fat layer exposed; I87.2 Venous insufficiency (chronic) (peripheral); E11.51 Type 2 diabetes mellitus with diabetic peripheral angiopathy without gangrene; E11.42 Type 2 diabetes mellitus with diabetic polyneuropathy; I10 Essential (primary) hypertension; E78.5 Hyperlipidemia, unspecified; Z87.891 Personal history of nicotine dependence | CPT/HCPCS: G0463 ==

== ENCOUNTER 2021-09-08 03:25 | Day surgery (SDC) | payer OTHER | END 2021-09-09 12:00 | disposition home or self-care (01) | LOC: WOUND 03:25 | DX: S91.102D Unspecified open wound of left great toe without damage to nail, subsequent encounter (principal); X58.XXXD Exposure to other specified factors, subsequent encounter; E11.621 Type 2 diabetes mellitus with foot ulcer | CPT/HCPCS: G0463 ==

== ENCOUNTER 2021-09-15 05:08 | Day surgery (SDC) | payer OTHER | END 2021-09-15 23:44 | disposition home or self-care (01) | LOC: WOUND 05:08 | DX: E11.621 Type 2 diabetes mellitus with foot ulcer (principal); L97.522 Non-pressure chronic ulcer of other part of left foot with fat layer exposed; I87.2 Venous insufficiency (chronic) (peripheral); E11.51 Type 2 diabetes mellitus with diabetic peripheral angiopathy without gangrene; S91.102D Unspecified open wound of left great toe without damage to nail, subsequent encounter; X58.XXXD Exposure to other specified factors, subsequent encounter; E11.42 Type 2 diabetes mellitus with diabetic polyneuropathy; I10 Essential (primary) hypertension; E78.5 Hyperlipidemia, unspecified | CPT/HCPCS: A9270 ==

== ENCOUNTER 2021-09-22 01:43 | Day surgery (SDC) | payer OTHER | END 2021-09-22 22:40 | disposition home or self-care (01) | LOC: WOUND 01:43 | DX: E11.621 Type 2 diabetes mellitus with foot ulcer (principal); L97.522 Non-pressure chronic ulcer of other part of left foot with fat layer exposed; E11.51 Type 2 diabetes mellitus with diabetic peripheral angiopathy without gangrene; I87.2 Venous insufficiency (chronic) (peripheral); I10 Essential (primary) hypertension; E78.5 Hyperlipidemia, unspecified; Z89.431 Acquired absence of right foot | CPT/HCPCS: A9270 ==

== ENCOUNTER 2021-09-29 00:33 | Day surgery (SDC) | payer OTHER | END 2021-09-29 23:08 | disposition home or self-care (01) | LOC: WOUND 00:33 | DX: E11.621 Type 2 diabetes mellitus with foot ulcer (principal); L97.522 Non-pressure chronic ulcer of other part of left foot with fat layer exposed; I87.2 Venous insufficiency (chronic) (peripheral); E11.51 Type 2 diabetes mellitus with diabetic peripheral angiopathy without gangrene; E11.42 Type 2 diabetes mellitus with diabetic polyneuropathy; I10 Essential (primary) hypertension ==

== ENCOUNTER 2021-10-06 01:19 | Day surgery (SDC) | payer OTHER | END 2021-10-06 23:10 | disposition home or self-care (01) | LOC: WOUND 01:19 | DX: E11.621 Type 2 diabetes mellitus with foot ulcer (principal); L97.522 Non-pressure chronic ulcer of other part of left foot with fat layer exposed; I87.2 Venous insufficiency (chronic) (peripheral); E11.51 Type 2 diabetes mellitus with diabetic peripheral angiopathy without gangrene; E11.42 Type 2 diabetes mellitus with diabetic polyneuropathy; I10 Essential (primary) hypertension; Z89.431 Acquired absence of right foot | CPT/HCPCS: A9270 ==

== ENCOUNTER 2021-10-10 05:47 | Observation (INO) | payer OTHER ==
[~2021-10-10] VITALS: Ht 175.3 cm; Wt 145.2 kg
[2021-10-10 07:25] LABS: BASOPHILS ABSOLUTE AUTO 0.04 K/mm3 (0.00-0.23); BASOPHILS PERCENT AUTO 0 % (0-2); EOSINOPHILS ABSOLUTE AUTO 0.11 K/mm3 (0.00-0.68); EOSINOPHILS PERCENT AUTO 1 % (0-6); Hematocrit 31.7 % (37.0-53.0); Hemoglobin 10.5 g/dL (13.5-17.5); IMMATURE GRAN ABSOLUTE AUTO 0.07 K/mm3 (0.00-0.10); IMMATURE GRAN PERCENT AUTO 1 % (0-1); LYMPHOCYTES ABSOLUTE AUTO 2.37 K/mm3 (0.84-5.20); LYMPHOCYTES PERCENT AUTO 17 % (21-46); MONOCYTES ABSOLUTE AUTO 0.85 K/mm3 (0.16-1.47); MONOCYTES PERCENT AUTO 6 % (4-13); Mean Corpuscular HGB 28.5 pg (26.0-34.0); Mean Corpuscular HGB Conc 33.1 g/dL (31.5-36.5); Mean Corpuscular Volume 86 fL (80-100); NEUTROPHILS PERCENT AUTO 75 % (41-73); Platelet Count 502 K/mm3 (150-400); RDW Coefficient Variation 12.2 % (11.7-14.2); RDW Standard Deviation 38.6 fL (35.1-46.3); Red Blood Cell Count 3.69 M/mm3 (4.30-5.90); White Blood Cell Count 14.04 K/mm3 (4.00-11.30)
[2021-10-10 07:37] LABS: Albumin, Blood 1.8 g/dL (3.4-5.0); Albumin/Globulin Ratio 0.3 (0.8-1.8); Bilirubin, Total 0.5 mg/dL (0.1-1.0); Bun/Creatinine Ratio 16.8 (12.0-20.0); Calcium, Blood 8.3 mg/dL (8.5-10.1); Creatinine, Blood 1.37 mg/dL (0.60-1.20); Globulin, Blood 5.3 g/dL (2.2-4.0); Potassium, Blood 4.3 mmol/L (3.5-5.5); Total Protein, Blood 7.1 g/dL (6.4-8.2)
[2021-10-10 07:37] LABS: Source, Urine Clean Catch
[2021-10-10 07:45] LABS: Bilirubin, Urine Neg (Neg); Blood, Urine 3+ (Neg); Glucose Qualitative, Urine 4+ (Neg); Ketones, Urine Neg (Neg); Leukocyte Esterase, Urine 2+ (Neg); Nitrite, Urine Pos (Neg); Protein, Urine 4+ (Neg); Specific Gravity, Urine 1.015 (1.003-1.022); Urobilinogen, Urine NORM (Normal)
[2021-10-10 07:54] LABS: Appearance, Urine Hazy (Clear); Color, Urine Yellow (P-Yellow)
[2021-10-10 07:55] LABS: Bacteria Few /hpf; Squamous Epithelial Cells Not Seen /hpf (Few); White Blood Cells, Urine 50-100 /hpf (0-5)
[2021-10-10] MEDS ORDERED: HYDCHL25 PO (09:07)
[2021-10-10] MEDS ORDERED: ZESTRIL40 M1 PO (09:49)
[2021-10-10] MEDS ORDERED: ATOR40TA PO (09:50)
[2021-10-10] MEDS ORDERED: INSULIN GL100 UNIT/2 SC (09:51)
[2021-10-10] MEDS ORDERED: ESCI10 PO (09:53)
[2021-10-10] MEDS ORDERED: INSULIN LI100 UNIT/6 (09:53)
[2021-10-10 12:12] LABS: Influenza A, PCR NEGATIVE (NEGATIVE); Influenza B, PCR NEGATIVE (NEGATIVE); Resp Syncytial Virus, PCR NEGATIVE (NEGATIVE); SARS-Cov-2 (COVID-19) PCR, MMC NEGATIVE (NEGATIVE)
--- NOTE | 2021-10-10 18:01 | NUR ---
PATIENT CURRENTLY SITTING UP IN BED EATING MEAL. NO SIGNS OR SYMPTOMS ACUTE DISTRESS NOTED. CALL LIGHT AND WATER IN EASY REACH. ABLE TO MAKE NEEDS AND WANTS KNOWN. PATIENT WAS JUST ASSIGNED A BED IN [place] AT [facility]. AWAITING TRANSPORT. WILL MONITOR.
--- NOTE | 2021-10-10 18:57 | NUR ---
REPORT CALLED TO EARLENE BRITTON AT [facility] IN [place].
== END 2021-10-10 21:45 | disposition short-term general hospital (02) ==
LOC: ER 05:47 → SURS 05:48
PROVIDERS: Student in an Organized Health Care Education/Training Program; ADMIT Family Medicine
DX: N41.2 Abscess of prostate (principal); E66.01 Morbid (severe) obesity due to excess calories; I10 Essential (primary) hypertension; E11.42 Type 2 diabetes mellitus with diabetic polyneuropathy; E11.65 Type 2 diabetes mellitus with hyperglycemia; K80.20 Calculus of gallbladder without cholecystitis without obstruction; E78.5 Hyperlipidemia, unspecified; N39.0 Urinary tract infection, site not specified; Z87.891 Personal history of nicotine dependence; Z79.4 Long term (current) use of insulin; Z68.42 Body mass index [BMI] 45.0-49.9, adult; Z20.822 Contact with and (suspected) exposure to COVID-19
CPT/HCPCS: 0241U; 36415; 74018; 74177; 80053; 81001; 82947; 85025; A9270; G0378; J0696; J1815; J1885; J7030; Q9966

== ENCOUNTER 2021-10-22 02:06 | Day surgery (SDC) | payer OTHER ==
[~2021-10-22 02:06] MED LIST changes: +ATOR40TA PO; +ESCI10 PO; +HYDCHL25 PO; +INSULIN GL100 UNIT/2 SC; +INSULIN LI100 UNIT/6; +ZESTRIL40 M1 PO
== END 2021-10-22 12:00 | disposition home or self-care (01) ==
LOC: WOUND 02:06
DX: E11.621 Type 2 diabetes mellitus with foot ulcer (principal); L97.522 Non-pressure chronic ulcer of other part of left foot with fat layer exposed; I87.2 Venous insufficiency (chronic) (peripheral); E11.51 Type 2 diabetes mellitus with diabetic peripheral angiopathy without gangrene; E11.42 Type 2 diabetes mellitus with diabetic polyneuropathy; I10 Essential (primary) hypertension; E78.5 Hyperlipidemia, unspecified; Z89.432 Acquired absence of left foot
CPT/HCPCS: G0463

== ENCOUNTER 2021-11-24 01:04 | Day surgery (SDC) | payer MEDICARE, OTHER | END 2021-11-24 23:22 | disposition home or self-care (01) | LOC: WOUND 01:04 | DX: Z09 Encounter for follow-up examination after completed treatment for conditions other than malignant neoplasm (principal); Z86.31 Personal history of diabetic foot ulcer; E11.51 Type 2 diabetes mellitus with diabetic peripheral angiopathy without gangrene; I87.2 Venous insufficiency (chronic) (peripheral); E11.42 Type 2 diabetes mellitus with diabetic polyneuropathy; I10 Essential (primary) hypertension; E78.5 Hyperlipidemia, unspecified; Z89.421 Acquired absence of other right toe(s) | CPT/HCPCS: G0463 ==

== ENCOUNTER → 2022-05-12 | Outpatient (CLI) | payer MEDICARE, OTHER ==
[2022-05-13 17:43] LABS: Protein, Urine Random 917.6 mg/dL (0.0-11.9); Protein/Creat Ratio, Ur Random 5.9
== END | disposition home or self-care (01) ==
LOC: LAB SHORT 04:35 → LAB FUT 04-28 14:15
PROVIDERS: Internal Medicine Nephrology
DX: N17.9 Acute kidney failure, unspecified (principal); N18.31 Chronic kidney disease, stage 3a
CPT/HCPCS: 82570; 84156

== ENCOUNTER 2022-09-28 03:12 | Day surgery (SDC) | payer MEDICARE, OTHER | END 2022-09-28 23:06 | disposition home or self-care (01) | LOC: WOUND 03:12 | DX: E11.621 Type 2 diabetes mellitus with foot ulcer (principal); I87.2 Venous insufficiency (chronic) (peripheral); I73.9 Peripheral vascular disease, unspecified; L97.513 Non-pressure chronic ulcer of other part of right foot with necrosis of muscle | CPT/HCPCS: G0463 ==

== ENCOUNTER 2022-10-05 01:37 | Day surgery (SDC) | payer MEDICARE, OTHER | END 2022-10-05 22:57 | disposition home or self-care (01) | LOC: WOUND 01:37 | DX: E11.621 Type 2 diabetes mellitus with foot ulcer (principal); L97.412 Non-pressure chronic ulcer of right heel and midfoot with fat layer exposed; I87.2 Venous insufficiency (chronic) (peripheral); E11.51 Type 2 diabetes mellitus with diabetic peripheral angiopathy without gangrene; E11.42 Type 2 diabetes mellitus with diabetic polyneuropathy; L97.513 Non-pressure chronic ulcer of other part of right foot with necrosis of muscle | CPT/HCPCS: G0463 ==

== ENCOUNTER 2022-10-12 00:30 | Day surgery (SDC) | payer MEDICARE, OTHER | END 2022-10-12 23:39 | disposition home or self-care (01) | LOC: WOUND 00:30 | DX: E11.621 Type 2 diabetes mellitus with foot ulcer (principal); I87.2 Venous insufficiency (chronic) (peripheral); L97.412 Non-pressure chronic ulcer of right heel and midfoot with fat layer exposed; I73.9 Peripheral vascular disease, unspecified | CPT/HCPCS: 99406; G0463 ==

== ENCOUNTER 2022-10-19 00:41 | Day surgery (SDC) | payer MEDICARE, OTHER | END 2022-10-19 22:54 | disposition home or self-care (01) | LOC: WOUND 00:41 | DX: E11.621 Type 2 diabetes mellitus with foot ulcer (principal); I87.2 Venous insufficiency (chronic) (peripheral); L97.515 Non-pressure chronic ulcer of other part of right foot with muscle involvement without evidence of necrosis; I73.9 Peripheral vascular disease, unspecified; L97.513 Non-pressure chronic ulcer of other part of right foot with necrosis of muscle | CPT/HCPCS: G0463 ==

== ENCOUNTER 2022-10-26 08:00 | Day surgery (SDC) | payer MEDICARE, OTHER | END 2022-10-26 23:59 | disposition home or self-care (01) | LOC: WOUND 08:00 | DX: E11.621 Type 2 diabetes mellitus with foot ulcer (principal); L97.412 Non-pressure chronic ulcer of right heel and midfoot with fat layer exposed; L97.415 Non-pressure chronic ulcer of right heel and midfoot with muscle involvement without evidence of necrosis; E11.42 Type 2 diabetes mellitus with diabetic polyneuropathy; I10 Essential (primary) hypertension; E78.5 Hyperlipidemia, unspecified; E11.51 Type 2 diabetes mellitus with diabetic peripheral angiopathy without gangrene; I87.2 Venous insufficiency (chronic) (peripheral) | CPT/HCPCS: G0463 ==

== ENCOUNTER 2022-11-14 01:13 | Day surgery (SDC) | payer MEDICARE, OTHER | END 2022-11-14 22:52 | disposition home or self-care (01) | LOC: WOUND 01:13 | DX: E11.621 Type 2 diabetes mellitus with foot ulcer (principal); L97.512 Non-pressure chronic ulcer of other part of right foot with fat layer exposed; I87.2 Venous insufficiency (chronic) (peripheral); E11.51 Type 2 diabetes mellitus with diabetic peripheral angiopathy without gangrene; E11.42 Type 2 diabetes mellitus with diabetic polyneuropathy; E78.5 Hyperlipidemia, unspecified; I10 Essential (primary) hypertension | CPT/HCPCS: G0463 ==

== ENCOUNTER 2022-11-23 02:23 | Day surgery (SDC) | payer MEDICARE, OTHER ==
[2022-11-23 12:21] LABS: Albumin/Globulin Ratio 0.4 (0.8-1.8); Bilirubin, Total 0.4 mg/dL (0.1-1.0); Bun/Creatinine Ratio 13.6 (12.0-20.0); Calcium, Blood 8.6 mg/dL (8.5-10.1); Creatinine, Blood 1.84 mg/dL (0.60-1.20); Globulin, Blood 5.2 g/dL (2.2-4.0); Potassium, Blood 5.2 mmol/L (3.5-5.5); Total Protein, Blood 7.2 g/dL (6.4-8.2)
== END 2022-11-23 22:40 | disposition home or self-care (01) ==
LOC: WOUND 02:23
PROVIDERS: Surgery
DX: E11.621 Type 2 diabetes mellitus with foot ulcer (principal); L97.512 Non-pressure chronic ulcer of other part of right foot with fat layer exposed; E11.42 Type 2 diabetes mellitus with diabetic polyneuropathy; E78.5 Hyperlipidemia, unspecified; I10 Essential (primary) hypertension; E11.51 Type 2 diabetes mellitus with diabetic peripheral angiopathy without gangrene; I87.2 Venous insufficiency (chronic) (peripheral)
CPT/HCPCS: 80053; 83036

== ENCOUNTER 2022-11-30 00:51 | Day surgery (SDC) | payer MEDICARE, OTHER | END 2022-11-30 23:05 | disposition home or self-care (01) | LOC: WOUND 00:51 | DX: E11.621 Type 2 diabetes mellitus with foot ulcer (principal); L97.415 Non-pressure chronic ulcer of right heel and midfoot with muscle involvement without evidence of necrosis; I87.2 Venous insufficiency (chronic) (peripheral); E11.51 Type 2 diabetes mellitus with diabetic peripheral angiopathy without gangrene; E11.42 Type 2 diabetes mellitus with diabetic polyneuropathy; I10 Essential (primary) hypertension; E78.5 Hyperlipidemia, unspecified ==

== ENCOUNTER 2022-12-07 03:36 | Day surgery (SDC) | payer MEDICARE, OTHER | END 2022-12-07 23:01 | disposition home or self-care (01) | LOC: WOUND 03:36 | DX: E11.621 Type 2 diabetes mellitus with foot ulcer (principal); L97.513 Non-pressure chronic ulcer of other part of right foot with necrosis of muscle; I87.2 Venous insufficiency (chronic) (peripheral); E11.52 Type 2 diabetes mellitus with diabetic peripheral angiopathy with gangrene; E11.42 Type 2 diabetes mellitus with diabetic polyneuropathy | CPT/HCPCS: G0463 ==

== ENCOUNTER 2022-12-12 00:18 | Day surgery (SDC) | payer MEDICARE, OTHER | END 2022-12-12 22:53 | disposition home or self-care (01) | LOC: HBO 00:18 | DX: E11.621 Type 2 diabetes mellitus with foot ulcer (principal); I87.2 Venous insufficiency (chronic) (peripheral); E11.51 Type 2 diabetes mellitus with diabetic peripheral angiopathy without gangrene; E11.42 Type 2 diabetes mellitus with diabetic polyneuropathy; L97.513 Non-pressure chronic ulcer of other part of right foot with necrosis of muscle | CPT/HCPCS: 82947; G0277 ==

== ENCOUNTER 2022-12-13 02:25 | Day surgery (SDC) | payer MEDICARE, OTHER | END 2022-12-13 23:08 | disposition home or self-care (01) | LOC: HBO 02:25 | DX: E11.621 Type 2 diabetes mellitus with foot ulcer (principal); L97.413 Non-pressure chronic ulcer of right heel and midfoot with necrosis of muscle; E11.42 Type 2 diabetes mellitus with diabetic polyneuropathy; I73.9 Peripheral vascular disease, unspecified; I87.2 Venous insufficiency (chronic) (peripheral) | CPT/HCPCS: 82947; G0277 ==

== ENCOUNTER 2022-12-14 02:07 | Day surgery (SDC) | payer MEDICARE, OTHER | END 2022-12-14 23:04 | disposition home or self-care (01) | LOC: HBO 02:07 | DX: E11.621 Type 2 diabetes mellitus with foot ulcer (principal); I87.2 Venous insufficiency (chronic) (peripheral); I73.9 Peripheral vascular disease, unspecified; E11.42 Type 2 diabetes mellitus with diabetic polyneuropathy; L97.513 Non-pressure chronic ulcer of other part of right foot with necrosis of muscle | CPT/HCPCS: 82947; G0463 ==

== ENCOUNTER 2022-12-15 02:02 | Day surgery (SDC) | payer MEDICARE, OTHER | END 2022-12-15 22:53 | disposition home or self-care (01) | LOC: HBO 02:02 | DX: E11.621 Type 2 diabetes mellitus with foot ulcer (principal); I87.2 Venous insufficiency (chronic) (peripheral); E11.51 Type 2 diabetes mellitus with diabetic peripheral angiopathy without gangrene; E11.42 Type 2 diabetes mellitus with diabetic polyneuropathy; L97.513 Non-pressure chronic ulcer of other part of right foot with necrosis of muscle | CPT/HCPCS: 82947; G0277 ==

== ENCOUNTER 2022-12-16 02:10 | Day surgery (SDC) | payer MEDICARE, OTHER | END 2022-12-16 22:50 | disposition home or self-care (01) | LOC: HBO 02:10 | DX: E11.621 Type 2 diabetes mellitus with foot ulcer (principal); I87.2 Venous insufficiency (chronic) (peripheral); E11.51 Type 2 diabetes mellitus with diabetic peripheral angiopathy without gangrene; E11.42 Type 2 diabetes mellitus with diabetic polyneuropathy; L97.513 Non-pressure chronic ulcer of other part of right foot with necrosis of muscle | CPT/HCPCS: 82947; G0277 ==

== ENCOUNTER 2022-12-19 01:29 | Day surgery (SDC) | payer MEDICARE, OTHER | END 2022-12-19 22:59 | disposition home or self-care (01) | LOC: HBO 01:29 | DX: E11.621 Type 2 diabetes mellitus with foot ulcer (principal); I87.2 Venous insufficiency (chronic) (peripheral); E11.51 Type 2 diabetes mellitus with diabetic peripheral angiopathy without gangrene; E11.42 Type 2 diabetes mellitus with diabetic polyneuropathy; L97.513 Non-pressure chronic ulcer of other part of right foot with necrosis of muscle; I73.9 Peripheral vascular disease, unspecified | CPT/HCPCS: 82947; G0277; G0463 ==

== ENCOUNTER 2022-12-19 09:28 | Day surgery (SDC) | payer MEDICARE, OTHER | END 2022-12-19 22:59 | disposition home or self-care (01) | LOC: WOUND 09:28 | DX: E11.621 Type 2 diabetes mellitus with foot ulcer (principal); L97.412 Non-pressure chronic ulcer of right heel and midfoot with fat layer exposed; I87.2 Venous insufficiency (chronic) (peripheral); I73.9 Peripheral vascular disease, unspecified; L97.513 Non-pressure chronic ulcer of other part of right foot with necrosis of muscle | CPT/HCPCS: G0463 ==

== ENCOUNTER 2022-12-20 02:40 | Day surgery (SDC) | payer MEDICARE, OTHER | END 2022-12-20 22:59 | disposition home or self-care (01) | LOC: HBO 02:40 | DX: E11.621 Type 2 diabetes mellitus with foot ulcer (principal); L97.513 Non-pressure chronic ulcer of other part of right foot with necrosis of muscle; I87.2 Venous insufficiency (chronic) (peripheral); I73.9 Peripheral vascular disease, unspecified | CPT/HCPCS: 82947; G0277 ==

== ENCOUNTER 2022-12-21 02:37 | Day surgery (SDC) | payer MEDICARE, OTHER | END 2022-12-21 22:55 | disposition home or self-care (01) | LOC: HBO 02:37 | DX: E11.621 Type 2 diabetes mellitus with foot ulcer (principal); I87.2 Venous insufficiency (chronic) (peripheral); I73.9 Peripheral vascular disease, unspecified; E11.42 Type 2 diabetes mellitus with diabetic polyneuropathy; L97.513 Non-pressure chronic ulcer of other part of right foot with necrosis of muscle | CPT/HCPCS: 82947; G0277 ==

== ENCOUNTER 2022-12-26 00:48 | Day surgery (SDC) | payer MEDICARE, OTHER | END 2022-12-26 22:41 | disposition home or self-care (01) | LOC: HBO 00:48 | DX: E11.621 Type 2 diabetes mellitus with foot ulcer (principal); I87.2 Venous insufficiency (chronic) (peripheral); I73.9 Peripheral vascular disease, unspecified; E11.42 Type 2 diabetes mellitus with diabetic polyneuropathy; L97.513 Non-pressure chronic ulcer of other part of right foot with necrosis of muscle | CPT/HCPCS: 82947; G0277; G0463 ==

== ENCOUNTER 2022-12-26 00:55 | Day surgery (SDC) | payer MEDICARE, OTHER | END 2022-12-26 22:41 | disposition home or self-care (01) | LOC: WOUND 00:55 | DX: E11.621 Type 2 diabetes mellitus with foot ulcer (principal); L97.419 Non-pressure chronic ulcer of right heel and midfoot with unspecified severity; L97.513 Non-pressure chronic ulcer of other part of right foot with necrosis of muscle; I87.2 Venous insufficiency (chronic) (peripheral); I73.9 Peripheral vascular disease, unspecified | CPT/HCPCS: G0463 ==

== ENCOUNTER 2022-12-27 02:06 | Day surgery (SDC) | payer MEDICARE, OTHER | END 2022-12-27 22:50 | disposition home or self-care (01) | LOC: HBO 02:06 | DX: E11.621 Type 2 diabetes mellitus with foot ulcer (principal); L97.513 Non-pressure chronic ulcer of other part of right foot with necrosis of muscle; I87.2 Venous insufficiency (chronic) (peripheral); I73.9 Peripheral vascular disease, unspecified | CPT/HCPCS: 82947; G0277 ==

== ENCOUNTER 2022-12-29 01:04 | Day surgery (SDC) | payer MEDICARE, OTHER | END 2022-12-29 22:50 | disposition home or self-care (01) | LOC: HBO 01:04 | DX: E11.621 Type 2 diabetes mellitus with foot ulcer (principal); L97.513 Non-pressure chronic ulcer of other part of right foot with necrosis of muscle; E11.51 Type 2 diabetes mellitus with diabetic peripheral angiopathy without gangrene; I87.2 Venous insufficiency (chronic) (peripheral); E11.42 Type 2 diabetes mellitus with diabetic polyneuropathy | CPT/HCPCS: 82947; G0277 ==

== ENCOUNTER 2022-12-30 00:48 | Day surgery (SDC) | payer MEDICARE, OTHER | END 2022-12-30 23:01 | disposition home or self-care (01) | LOC: HBO 00:48 | DX: E11.621 Type 2 diabetes mellitus with foot ulcer (principal); L97.513 Non-pressure chronic ulcer of other part of right foot with necrosis of muscle; I87.2 Venous insufficiency (chronic) (peripheral); E11.51 Type 2 diabetes mellitus with diabetic peripheral angiopathy without gangrene; E11.42 Type 2 diabetes mellitus with diabetic polyneuropathy | CPT/HCPCS: 82947; G0277 ==

== ENCOUNTER 2023-01-02 00:15 | Day surgery (SDC) | payer MEDICARE, OTHER | END 2023-01-02 23:03 | disposition home or self-care (01) | LOC: HBO 00:15 | DX: E11.621 Type 2 diabetes mellitus with foot ulcer (principal); L97.513 Non-pressure chronic ulcer of other part of right foot with necrosis of muscle; I87.2 Venous insufficiency (chronic) (peripheral); E11.42 Type 2 diabetes mellitus with diabetic polyneuropathy; E11.51 Type 2 diabetes mellitus with diabetic peripheral angiopathy without gangrene | CPT/HCPCS: 82947; G0463 ==

== ENCOUNTER 2023-01-03 02:14 | Day surgery (SDC) | payer MEDICARE, OTHER | END 2023-01-03 22:46 | disposition home or self-care (01) | LOC: HBO 02:14 | DX: E11.621 Type 2 diabetes mellitus with foot ulcer (principal); L97.513 Non-pressure chronic ulcer of other part of right foot with necrosis of muscle; I87.2 Venous insufficiency (chronic) (peripheral); E11.51 Type 2 diabetes mellitus with diabetic peripheral angiopathy without gangrene; E11.42 Type 2 diabetes mellitus with diabetic polyneuropathy | CPT/HCPCS: 82947; G0277 ==

== ENCOUNTER 2023-01-04 02:34 | Day surgery (SDC) | payer MEDICARE, OTHER | END 2023-01-04 23:32 | disposition home or self-care (01) | LOC: HBO 02:34 | DX: E11.621 Type 2 diabetes mellitus with foot ulcer (principal); L97.513 Non-pressure chronic ulcer of other part of right foot with necrosis of muscle; I87.2 Venous insufficiency (chronic) (peripheral); E11.51 Type 2 diabetes mellitus with diabetic peripheral angiopathy without gangrene; E11.42 Type 2 diabetes mellitus with diabetic polyneuropathy | CPT/HCPCS: 82947; G0277 ==

== ENCOUNTER 2023-01-06 03:25 | Day surgery (SDC) | payer MEDICARE, OTHER | END 2023-01-06 22:43 | disposition home or self-care (01) | LOC: WOUND 03:25 | DX: E11.621 Type 2 diabetes mellitus with foot ulcer (principal); L97.513 Non-pressure chronic ulcer of other part of right foot with necrosis of muscle; I87.2 Venous insufficiency (chronic) (peripheral); E11.51 Type 2 diabetes mellitus with diabetic peripheral angiopathy without gangrene; E11.42 Type 2 diabetes mellitus with diabetic polyneuropathy; I10 Essential (primary) hypertension; E78.5 Hyperlipidemia, unspecified | CPT/HCPCS: G0463 ==

== ENCOUNTER 2023-03-29 08:54 | Inpatient (IN) | payer MEDICARE, OTHER ==
[~2023-03-29] VITALS: Ht 175.3 cm; Wt 155.8 kg
[~2023-03-29 08:54] MED LIST changes: -INSULIN LI100 UNIT/6; +INSULIN LI100 UNIT/6 SC
[2023-03-29 10:17] LABS: BASOPHILS ABSOLUTE AUTO 0.04 K/mm3 (0.00-0.23); BASOPHILS PERCENT AUTO 0 % (0-2); EOSINOPHILS PERCENT AUTO 1 % (0-6); Hematocrit 35.3 % (37.0-53.0); Hemoglobin 11.5 g/dL (13.5-17.5); IMMATURE GRAN ABSOLUTE AUTO 0.09 K/mm3 (0.00-0.10); IMMATURE GRAN PERCENT AUTO 1 % (0-1); LYMPHOCYTES ABSOLUTE AUTO 2.45 K/mm3 (0.84-5.20); LYMPHOCYTES PERCENT AUTO 16 % (21-46); MONOCYTES ABSOLUTE AUTO 1.07 K/mm3 (0.16-1.47); MONOCYTES PERCENT AUTO 7 % (4-13); Mean Corpuscular HGB 28.2 pg (26.0-34.0); Mean Corpuscular HGB Conc 32.6 g/dL (31.5-36.5); Mean Corpuscular Volume 87 fL (80-100); Mean Platelet Volume 9.8 fL (9.1-12.4); NEUTROPHILS ABSOLUTE AUTO 11.64 K/mm3 (1.96-9.15); NEUTROPHILS PERCENT AUTO 75 % (41-73); Platelet Count 456 K/mm3 (150-400); RDW Coefficient Variation 12.6 % (11.7-14.2); RDW Standard Deviation 39.7 fL (35.1-46.3); Red Blood Cell Count 4.08 M/mm3 (4.30-5.90); White Blood Cell Count 15.49 K/mm3 (4.00-11.30)
[2023-03-29] MEDS ORDERED: PIOGLITAZONE HC15 MG PO (10:21)
[2023-03-29 11:19] LABS: C-REACTIVE PROTEIN, EXT RANGE 17.3 mg/dL (0.000-0.300)
[2023-03-29 11:21] LABS: Albumin, Blood 1.6 g/dL (3.4-5.0); Albumin/Globulin Ratio 0.3 (0.8-1.8); Bilirubin, Total 0.6 mg/dL (0.1-1.0); Bun/Creatinine Ratio 9.9 (12.0-20.0); Calcium, Blood 8.1 mg/dL (8.5-10.1); Creatinine, Blood 2.73 mg/dL (0.60-1.20); Globulin, Blood 5.4 g/dL (2.2-4.0); Potassium, Blood 4.4 mmol/L (3.5-5.5)
[2023-03-29] MEDS ORDERED: GABA800 PO (13:49)
[2023-03-29] MEDS ORDERED: ATORVASTATIN CA40 M1 PO (13:50)
[2023-03-29 14:01] VITALS: BP 122/72
--- NOTE | 2023-03-29 14:56 | NUR ---
ASSUMED CARE: PT ARRIVED TO ROOM VIA WHEEL CHAIR WITH S.O. AT BEDSIDE. SOCK REMOVED FROM LEFT FOOT AND PICTURES TAKEN. PT TRANSFERRED WITH MINIMAL ASSISTANCE AND CANE TO BED. IGNITION RISK: PT AND S.O. DENIED POSSESSION OF CIGARRETTES, LIGHTERS, OR MATCHES. S.O. STATES THAT SHE HAS LIGHTERS IN THE ED THAT WERE REMOVED. VERBALIZED UNDERSTANDING AND DENIES FURTHER CONCERNS.
--- NOTE | 2023-03-29 18:09 | NUR ---
SHIFT SUMMARY: PT RESTING QUIETLY AT THIS TIME. AWAITING INPUT FROM PODIATRY. RECIEVING IV ABX. NO C/O PAIN OR OTHER CONCERNS AT THIS TIME. S.O. WAS AT BEDSIDE FOR PART OF SHIFT. NO ACUTE NEEDS
--- NOTE | 2023-03-29 18:17 | NUR ---
MESSAGE LEFT FOR DR MICHELLE REGARDING PT'S CONSULT. REGISTRAR ASSISTANT AWARE
[2023-03-29 19:39] VITALS: BP 177/70
[2023-03-30 04:34] VITALS: BP 156/99
--- NOTE | 2023-03-30 04:34 | NUR ---
CRUISE DIRECTOR SUMMARY NO ACUTE EVENTS OVERNIGHT. A&OX4. PATIENT EFFECTIVELY COMMUNICATES NEEDS. VSS. RR EVEN AND UNLABORED ON RA. PATIENT IS TOLERATING ABO THERAPY. THIS RN SPOKE WITH DR. MICHELLE, WHO WILL EVALUATE PATIENT LATER THIS MORNING. PER DR. MICHELLE, THIS RN PROVIDED THE FOLLOWING WOUND CARE: WOUND/ALANNA-WOUND WAS CLEANSED WITH WOUND CLEANSER, PATTED DRY, AND COVERED WITH A NON-ADHERENT DRESSING THAT WAS LOOSELY SECURED WITH KERLEX. BED LOW AND LOCKED. CALL LIGHT WITHIN REACH. THIS RN WILL CONTINUE TO MONITOR.
[2023-03-30 04:50] LABS: BASOPHILS ABSOLUTE AUTO 0.06 K/mm3 (0.00-0.23); BASOPHILS PERCENT AUTO 0 % (0-2); EOSINOPHILS ABSOLUTE AUTO 0.26 K/mm3 (0.00-0.68); EOSINOPHILS PERCENT AUTO 2 % (0-6); Hematocrit 32.5 % (37.0-53.0); Hemoglobin 10.8 g/dL (13.5-17.5); IMMATURE GRAN ABSOLUTE AUTO 0.08 K/mm3 (0.00-0.10); IMMATURE GRAN PERCENT AUTO 1 % (0-1); LYMPHOCYTES ABSOLUTE AUTO 2.04 K/mm3 (0.84-5.20); LYMPHOCYTES PERCENT AUTO 15 % (21-46); MONOCYTES ABSOLUTE AUTO 0.81 K/mm3 (0.16-1.47); MONOCYTES PERCENT AUTO 6 % (4-13); Mean Corpuscular HGB 27.9 pg (26.0-34.0); Mean Corpuscular HGB Conc 33.2 g/dL (31.5-36.5); Mean Corpuscular Volume 84 fL (80-100); Mean Platelet Volume 9.7 fL (9.1-12.4); NEUTROPHILS ABSOLUTE AUTO 10.12 K/mm3 (1.96-9.15); NEUTROPHILS PERCENT AUTO 76 % (41-73); Platelet Count 436 K/mm3 (150-400); RDW Coefficient Variation 12.8 % (11.7-14.2); RDW Standard Deviation 39.2 fL (35.1-46.3); Red Blood Cell Count 3.87 M/mm3 (4.30-5.90); White Blood Cell Count 13.37 K/mm3 (4.00-11.30)
[2023-03-30 05:32] LABS: Albumin, Blood 1.4 g/dL (3.4-5.0); Albumin/Globulin Ratio 0.3 (0.8-1.8); Bilirubin, Total 0.8 mg/dL (0.1-1.0); Creatinine, Blood 2.9 mg/dL (0.60-1.20); Globulin, Blood 5.2 g/dL (2.2-4.0); Potassium, Blood 4.3 mmol/L (3.5-5.5); Total Protein, Blood 6.6 g/dL (6.4-8.2)
--- NOTE | 2023-03-30 07:15 | NUR ---
ASSUMED CARE: PT RESTING QUIETLY AT THIS TIME. IV ZOSYN COMPLETED. NO ACUTE NEEDS OR CONCERNS.
[2023-03-30 07:22] VITALS: BP 153/82
--- NOTE | 2023-03-30 08:10 | NUR ---
WOUND CARE: DR MICHELLE CAME TO SEE PT AND MADE A SMALL INCISION AT PUNCTURE SITE WITH SOME PURULENT DRAINAGE NOTED. DR PACKED WITH IODOFORM GAUZE AND WRAPPED WITH KERLEX. INSTRUCTED TO CHANGE OUT EVERY OTHER DAY UNTIL UNABLE TO PACK. INSTRUCTS TO RECONSULT IF PT'S CONDITION IS WORSENING AND TO FOLLOW UP WITH DR MCNALLY OUTPT.
--- NOTE | 2023-03-30 10:30 | NUR ---
DR LOPEZ CAME TO SEE PT AND WAS MADE AWARE OF DR MICHELLE' SUGGESTIONS. ASKED DR ABOUT PT'S WORSENING KIDNEY FUNCTION. DR STATES PT HAS A HX OF CKD AND PLANS TO TREND LABS. MAY NEED TO GET NEPHROLOGY CONSULT IF CONTINUES TO WORSEN
[2023-03-30 14:29] VITALS: BP 146/86
--- NOTE | 2023-03-30 18:44 | NUR ---
SHIFT SUMMARY: PT WAS SEEN BY DR MICHELLE TODAY WITH RECOMMENDATIONS GIVEN FOR WOUND CARE. PT REMAINS IN HOSPITAL TO MONITOR RENAL FUNCTION. S.O. AT BEDSIDE FOR PART OF SHIFT. PT HAS BEEN INDEPENDENT WITH URINAL AND CALLS IF NEEDS TO AMBULATE. NO FURTHER NEEDS OR CONCERNS AT THIS TIME.
[2023-03-30 20:00] VITALS: BP 166/80
[2023-03-31 05:45] VITALS: BP 153/72
[2023-03-31 06:15] LABS: Bun/Creatinine Ratio 8.8 (12.0-20.0); Calcium, Blood 8.1 mg/dL (8.5-10.1); Creatinine, Blood 2.96 mg/dL (0.60-1.20); Potassium, Blood 4.2 mmol/L (3.5-5.5)
--- NOTE | 2023-03-31 06:26 | NUR ---
SHIFT SUMMARY PT LAYING IN BED WITH EYES CLOSED DURING BEDSIDE ROUNDS- Jose AHYNES AT BEDSIDE, IV ZOSYN INFUSING WITHOUT PROBLEMS, PT ASSESSED FOR IGNITION RISK, PT DENIES HAVING IGNITION RISK ITEMS, PT TOOK SCHEDULED HS MEDS WITHOUT PROBLEMS, PT USED URINAL WITHOUT PROBLEMS T/O NIGHT, BED LOW POSITION, CALL LIGHT WITHIN REACH
[2023-03-31 06:38] LABS: BASOPHILS ABSOLUTE AUTO 0.05 K/mm3 (0.00-0.23); BASOPHILS PERCENT AUTO 0 % (0-2); EOSINOPHILS PERCENT AUTO 2 % (0-6); Hematocrit 31.4 % (37.0-53.0); Hemoglobin 10.2 g/dL (13.5-17.5); IMMATURE GRAN ABSOLUTE AUTO 0.08 K/mm3 (0.00-0.10); IMMATURE GRAN PERCENT AUTO 1 % (0-1); LYMPHOCYTES ABSOLUTE AUTO 2.22 K/mm3 (0.84-5.20); LYMPHOCYTES PERCENT AUTO 16 % (21-46); MONOCYTES PERCENT AUTO 7 % (4-13); Mean Corpuscular HGB 27.7 pg (26.0-34.0); Mean Corpuscular HGB Conc 32.5 g/dL (31.5-36.5); Mean Corpuscular Volume 85 fL (80-100); Mean Platelet Volume 9.8 fL (9.1-12.4); NEUTROPHILS ABSOLUTE AUTO 10.21 K/mm3 (1.96-9.15); NEUTROPHILS PERCENT AUTO 74 % (41-73); Platelet Count 452 K/mm3 (150-400); RDW Coefficient Variation 12.8 % (11.7-14.2); RDW Standard Deviation 39.8 fL (35.1-46.3); Red Blood Cell Count 3.68 M/mm3 (4.30-5.90); White Blood Cell Count 13.76 K/mm3 (4.00-11.30)
--- NOTE | 2023-03-31 07:30 | NUR ---
ASSUMED CARE: PT RESTING QUIETLY AT THIS TIME. ON RA, NO TELE. NO ACUTE NEEDS OR CONCERNS AT THIS TIME.
[2023-03-31 08:39] VITALS: BP 139/84
[2023-03-31 13:20] LABS: Vancomycin, Trough 19.9 ug/mL (5.0-10.0)
[2023-03-31 15:23] VITALS: BP 166/73
--- NOTE | 2023-03-31 18:30 | NUR ---
SHIFT SUMMARY PT UP IN SHOWER. ABX AND INSULIN TO BE GIVEN WHEN PT IS FINISHED IN SHOWER. DR GUTIÉRREZ AT BEDSIDE NOW FOR RENAL CONSULT. DRESSING CHANGES NEEDED AND WOUND CARE PER INSTRUCTIONS OF DR MICHELLE. IGNITION RISK: PT AND S.O. AWARE OF NONSMOKING POLICY. NO SIGNS OF CIGARRETTES, LIGHTERS OR MATCHES.
[2023-03-31 21:09] LABS: HEMOGLOBIN A1C 9.9 % (4.8-5.6)
[2023-03-31 21:19] VITALS: BP 161/83
[2023-03-31 23:51] LABS: Source, Urine Voided
[2023-03-31 23:56] LABS: Bilirubin, Urine Neg (Neg); Blood, Urine 3+ (Neg); Glucose Qualitative, Urine 3+ (Neg); Ketones, Urine Neg (Neg); Leukocyte Esterase, Urine Neg (Neg); Nitrite, Urine Neg (Neg); Protein, Urine 4+ (Neg); Urobilinogen, Urine NORM (Normal)
[2023-04-01 00:13] LABS: Appearance, Urine Clear (Clear); Color, Urine Yellow (P-Yellow)
[2023-04-01 00:14] LABS: Bacteria Not Seen /hpf; Squamous Epithelial Cells Not Seen /hpf (Few); White Blood Cells, Urine 0-2 /hpf (0-5)
[2023-04-01 05:21] VITALS: BP 151/91
[2023-04-01 05:54] LABS: BASOPHILS ABSOLUTE AUTO 0.05 K/mm3 (0.00-0.23); BASOPHILS PERCENT AUTO 0 % (0-2); EOSINOPHILS ABSOLUTE AUTO 0.33 K/mm3 (0.00-0.68); EOSINOPHILS PERCENT AUTO 3 % (0-6); Hematocrit 31.8 % (37.0-53.0); Hemoglobin 10.3 g/dL (13.5-17.5); IMMATURE GRAN ABSOLUTE AUTO 0.09 K/mm3 (0.00-0.10); IMMATURE GRAN PERCENT AUTO 1 % (0-1); LYMPHOCYTES PERCENT AUTO 16 % (21-46); MONOCYTES ABSOLUTE AUTO 0.69 K/mm3 (0.16-1.47); MONOCYTES PERCENT AUTO 5 % (4-13); Mean Corpuscular HGB 27.5 pg (26.0-34.0); Mean Corpuscular HGB Conc 32.4 g/dL (31.5-36.5); Mean Corpuscular Volume 85 fL (80-100); Mean Platelet Volume 9.5 fL (9.1-12.4); NEUTROPHILS ABSOLUTE AUTO 9.64 K/mm3 (1.96-9.15); NEUTROPHILS PERCENT AUTO 75 % (41-73); Platelet Count 480 K/mm3 (150-400); RDW Coefficient Variation 12.9 % (11.7-14.2); RDW Standard Deviation 39.8 fL (35.1-46.3); Red Blood Cell Count 3.74 M/mm3 (4.30-5.90)
--- NOTE | 2023-04-01 06:11 | NUR ---
SHIFT SUMMARY PT TOOK SHOWER DURING BEDSIDE REPORT- PT TOLERATED WELL, PT TOOK SCHEDULED HS MEDICATIONS WTIHOUT PROBLEMS, ZOSYN INFUSED SCHEDULED T/O NIGHT- CHANGED BANDAGE ON LEFT FOOT, BED LOW POSITION, CALL LIGHT WITHIN REACH
[2023-04-01 06:13] LABS: Albumin, Blood 1.3 g/dL (3.4-5.0); Albumin/Globulin Ratio 0.2 (0.8-1.8); Bilirubin, Total 0.4 mg/dL (0.1-1.0); Bun/Creatinine Ratio 8.5 (12.0-20.0); Calcium, Blood 8.2 mg/dL (8.5-10.1); Creatinine, Blood 2.83 mg/dL (0.60-1.20); Globulin, Blood 5.5 g/dL (2.2-4.0); Potassium, Blood 4.2 mmol/L (3.5-5.5); Total Protein, Blood 6.8 g/dL (6.4-8.2)
--- NOTE | 2023-04-01 08:00 | NUR ---
PT DENIES INFLAMMABLE ITEMS IN PRESENCE PT A/O PLEASANT COOP A/O X4, DENIES PAIN, H/R REG, NO MURMUR NOTED. +2 EDEMA L LEG. LUNGS CLEAR, RESP EASY, UNLABORED. ON R.A. BT X4 LAST BM YST PER PT. VOIDS URINAL OR SBA TO BATHROOM. WOUND ON LEFT FOOT. WRAPPED. RT TOES AMPUTATED PRIOR. CDI. BED IN LOW POSITION, CALL LITE IN REACH, CALLS APPROP
[2023-04-01 08:41] VITALS: BP 145/73
[2023-04-01 16:26] VITALS: BP 177/83
[2023-04-01 17:42] VITALS: BP 177/83
--- NOTE | 2023-04-01 18:53 | NUR ---
PT C/O HEADACHE AFTER RETURN FROM MRI, ALSO STATES HE HAD THIS AM, BUT DID NOT C/O. GAVE ROXYCODONE PER EMAR
[2023-04-01 19:18] VITALS: BP 184/79
--- NOTE | 2023-04-01 19:18 | NUR ---
PT QUITE PLEASANT TODAY, DENIED PAIN, BUT ADMITTED TO PAIN THIS MARYAN. MED PER EMAR. DID GET MRI AND ECHO TODAY. UNABLE TO CHANGE WOUND ON FOOT TODAY. PASSED TO SCOTTY HENAO. NO NEW CONCERNS NOTED. BED IN LOW POSITION, CALL LITE IN REACH, CALLS APROP
[2023-04-02 00:22] VITALS: BP 148/76
[2023-04-02 04:13] VITALS: BP 163/81
[2023-04-02 05:34] LABS: Albumin, Blood 1.2 g/dL (3.4-5.0); Anion Gap 7 mmol/L (6-16); Blood Urea Nitrogen 24 mg/dL (8-24); Bun/Creatinine Ratio 7.8 (12.0-20.0); CO2, Blood 21 mmol/L (21-32); Calcium, Blood 8.1 mg/dL (8.5-10.1); Chloride, Blood 106 mmol/L (98-108); Creatinine, Blood 3.06 mg/dL (0.60-1.20); Glomerular Filtration Rate 25 (60-); Glucose, Blood 227 mg/dL (70-99); Potassium, Blood 3.9 mmol/L (3.5-5.5); Sodium, Blood 134 mmol/L (136-145)
--- NOTE | 2023-04-02 05:49 | NUR ---
SHIFT SUMMARY PATIENT ALERT, BRIGHT AFFECT. SIGNIFICANT OTHER AT BEDSIDE. NO COMPLAINTS STATED AT TIME OF ASSESSMENT. AT END OF SHIFT, C/O OGDEN, RECEIVED PRN OXYCODONE AND TOLERATED WELL. DRESSING TO LEFT FOOT CHANGED, NO BLEEDING, NO DRAINAGE. CONTINUES ON IV ABX WITHOUT ANY APPARENT ASE NOTED. PIV TO RIGHT AC, PATENT, FLUSHING WELL. NO ACUTE CHANGES OVERNIGHT. PATIENT EDUCATED ON FIRE SAFETY AND RISK OF INJURY R/T OXYGEN USE, VERBALIZED UNDERSTANDING, DENIES SMOKING NOR ACCESS TO ANY SOURCES OF IGNITION. BED IN LOW POSITION, CALL LIGHT WITHIN REACH.
[2023-04-02 06:18] LABS: BASOPHILS ABSOLUTE AUTO 0.05 K/mm3 (0.00-0.23); BASOPHILS PERCENT AUTO 0 % (0-2); EOSINOPHILS ABSOLUTE AUTO 0.32 K/mm3 (0.00-0.68); EOSINOPHILS PERCENT AUTO 2 % (0-6); Hematocrit 31.6 % (37.0-53.0); Hemoglobin 10.3 g/dL (13.5-17.5); IMMATURE GRAN PERCENT AUTO 1 % (0-1); LYMPHOCYTES ABSOLUTE AUTO 2.29 K/mm3 (0.84-5.20); LYMPHOCYTES PERCENT AUTO 17 % (21-46); MONOCYTES ABSOLUTE AUTO 0.84 K/mm3 (0.16-1.47); MONOCYTES PERCENT AUTO 6 % (4-13); Mean Corpuscular HGB 27.6 pg (26.0-34.0); Mean Corpuscular HGB Conc 32.6 g/dL (31.5-36.5); Mean Corpuscular Volume 85 fL (80-100); Mean Platelet Volume 9.3 fL (9.1-12.4); NEUTROPHILS ABSOLUTE AUTO 10.28 K/mm3 (1.96-9.15); NEUTROPHILS PERCENT AUTO 74 % (41-73); Platelet Count 486 K/mm3 (150-400); RDW Coefficient Variation 12.7 % (11.7-14.2); RDW Standard Deviation 38.8 fL (35.1-46.3); Red Blood Cell Count 3.73 M/mm3 (4.30-5.90); White Blood Cell Count 13.88 K/mm3 (4.00-11.30)
[2023-04-02 08:21] VITALS: BP 139/73
[2023-04-02 11:04] LABS: C-REACTIVE PROTEIN, EXT RANGE 12.2 mg/dL (0.000-0.300)
[2023-04-02 17:36] VITALS: BP 147/94
--- NOTE | 2023-04-02 19:15 | NUR ---
PT QUITE PLEASNT TODAY. DID C/O OXY BEING TOO MUCH FOR HEADACHE. REQUEST SOMETHING WORK FROM HOME. DISCUSSED WITH DR BUSTOS. TYLENOL ORDERED. FAMILY IN TO VISIT TODAY. NO NEW CONCEERNS NOTED TODAY. SLEPT MUCH OF DAY. BED IN LOW POSITION, CALL LITE IN REACH, CALLS APPROP
[2023-04-02 20:28] VITALS: BP 169/71
[2023-04-03 04:42] VITALS: BP 167/95
--- NOTE | 2023-04-03 04:55 | NUR ---
SHIFT SUMMARY PATIENT ALERT, DENIES PAIN NOR DISCOMFORT. FAMILY AT BEDSIDE VISITING. CONTINUES ON IV ABX THERAPY. PIV TO RIGHT AC, SL, PATENT FLUSHING WELL. NO ACUTE CHANGES OVERNIGHT. RESTING IN BED THROUGHOUT MOST OF SHIFT. PATIENT REMINDED OF FIRE SAFETY AND INJURY RISK R/T OXYGEN USE, VERBALZED UNDERSTANDING, DENIES HAVING ANY SOURCES OF IGNITION. BED IN LOW POSITION, CALL LIGHT WITHIN REACH.
[2023-04-03 05:42] LABS: Albumin, Blood 1.3 g/dL (3.4-5.0); Anion Gap 6 mmol/L (6-16); Blood Urea Nitrogen 23 mg/dL (8-24); Bun/Creatinine Ratio 7.2 (12.0-20.0); CO2, Blood 22 mmol/L (21-32); Calcium, Blood 8.1 mg/dL (8.5-10.1); Chloride, Blood 108 mmol/L (98-108); Glomerular Filtration Rate 23 (60-); Glucose, Blood 134 mg/dL (70-99); Phosphorus, Blood 3.7 mg/dL (2.5-4.9); Sodium, Blood 136 mmol/L (136-145)
[2023-04-03 08:03] VITALS: BP 168/86
--- NOTE | 2023-04-03 08:39 | NUR ---
CALL PLACED TO DR. MARRERO FOR L FOOT WOUND PER DR. CALLEJAS'S ASSESSMENT.
[2023-04-03 17:08] VITALS: BP 174/76
--- NOTE | 2023-04-03 18:05 | NUR ---
SHIFT SUMMARY A&OX4. PATIENT NOTED TO BE IRRITABLE T/O SHIFT. MARRERO CAME AND HAD PATIENT SIGN CONSENT FORMS FOR SURGERY TOMORROW. HE WILL BE NPO AT MIDNIGHT. NO ACUTE CHANGES THIS SHIFT. WHEN ASKED ABOUT PAIN, PATIENT STATED "IT DOESN'T MATTER" AND REFUSED TO ANSWER ANYMORE QUESTIONS. REFUSED SHOWER. ARRIVED AROUND 1630 AND EXPLAINED THAT "HE IS NOT THAT EDUCATED AND JUST DOESN'T UNDERSTAND WHAT'S GOING ON." PATIENT CURRENTLY LAYING IN BED, CALL LIGHT WITHIN REACH. SOURCES OF IGNITION REVIEWED DURING HOURLY ROUNDING T/O SHIFT.
[2023-04-03 19:54] VITALS: BP 140/66
[2023-04-04] VITALS (18 sets, daily range): BP systolic 69–179; BP diastolic 43–95
--- NOTE | 2023-04-04 04:45 | NUR ---
SHIFT SUMMARY PATIENT ALERT, COOPERATIVE WITH ALL CARES. APPEARES MORE WITHDRAWN THEN PRIOR SHIFT, MINIMAL INTERACTION. DENIES PAIN NOR DISCOMFORT. DSG TO LEFT FOOT IS C/D/I. PIV TO RIGHT AC, PATENT. CONTINUES ON IV ABx THERAPY. FIRE SAFETY REVIEWED PER HOURLY ROUNDS, DENIES ACCESS TO ANY SOURCES OF IGNITION. NO ACUTE CHANGES OVERNIGHT. BED LOW, CALL LIGHT WITHIN REACH.
[2023-04-04 05:30] LABS: BASOPHILS ABSOLUTE AUTO 0.03 K/mm3 (0.00-0.23); BASOPHILS PERCENT AUTO 0 % (0-2); EOSINOPHILS ABSOLUTE AUTO 0.19 K/mm3 (0.00-0.68); EOSINOPHILS PERCENT AUTO 2 % (0-6); Hematocrit 32.6 % (37.0-53.0); Hemoglobin 10.7 g/dL (13.5-17.5); IMMATURE GRAN ABSOLUTE AUTO 0.14 K/mm3 (0.00-0.10); IMMATURE GRAN PERCENT AUTO 1 % (0-1); LYMPHOCYTES ABSOLUTE AUTO 2.35 K/mm3 (0.84-5.20); LYMPHOCYTES PERCENT AUTO 23 % (21-46); MONOCYTES ABSOLUTE AUTO 0.46 K/mm3 (0.16-1.47); MONOCYTES PERCENT AUTO 5 % (4-13); Mean Corpuscular HGB 27.6 pg (26.0-34.0); Mean Corpuscular HGB Conc 32.8 g/dL (31.5-36.5); Mean Corpuscular Volume 84 fL (80-100); Mean Platelet Volume 9.2 fL (9.1-12.4); NEUTROPHILS ABSOLUTE AUTO 7.08 K/mm3 (1.96-9.15); NEUTROPHILS PERCENT AUTO 69 % (41-73); Platelet Count 516 K/mm3 (150-400); RDW Standard Deviation 39.8 fL (35.1-46.3); Red Blood Cell Count 3.87 M/mm3 (4.30-5.90); White Blood Cell Count 10.25 K/mm3 (4.00-11.30)
[2023-04-04 06:06] LABS: Albumin, Blood 1.3 g/dL (3.4-5.0); Anion Gap 9 mmol/L (6-16); Blood Urea Nitrogen 27 mg/dL (8-24); Bun/Creatinine Ratio 7.5 (12.0-20.0); CO2, Blood 20 mmol/L (21-32); Calcium, Blood 7.9 mg/dL (8.5-10.1); Chloride, Blood 108 mmol/L (98-108); Creatinine, Blood 3.58 mg/dL (0.60-1.20); Glomerular Filtration Rate 20 (60-); Glucose, Blood 173 mg/dL (70-99); Potassium, Blood 4.1 mmol/L (3.5-5.5); Sodium, Blood 137 mmol/L (136-145)
--- NOTE | 2023-04-04 10:49 | NUR ---
PATIENT REFUSED ALL 0900 ORAL MEDS AND HEPARIN INJECTION. NOTIFIED CHARGE.
[2023-04-04 12:18] LABS: A/G RATIO 0.3 (0.7-1.7); ALBUMIN 1.4 g/dL (2.9-4.4); ALPHA-1-GLOBULIN 0.5 g/dL (0.0-0.4); ALPHA-2-GLOBULIN 1.2 g/dL (0.4-1.0); BETA GLOBULIN 1.3 g/dL (0.7-1.3); GAMMA GLOBULIN 1.2 g/dL (0.4-1.8); GLOBULIN, TOTAL 4.3 g/dL (2.2-3.9); M-SPIKE Not Observed g/dL (Not Observed); PROTEIN, TOTAL, SERUM 5.7 g/dL (6.0-8.5)
--- NOTE | 2023-04-04 16:57 | NUR ---
SHIFT SUMMARY PATIENT SLEPT THROUGH MOST OF THE SHIFT. REFUSED MOST MEDICATIONS AND BARELY COMMUNICATED WITH STAFF. SOURCES OF IGNITION ASSESSED DURING HOURLY ROUNDING. PT LEFT FOR SURGERY AROUND 1600.
--- NOTE | 2023-04-04 18:02 | NUR ---
PACU DISCHARGE PT ARRIVED TO PACU W OPA IN MOUTH. PT PLACED ON NON-REBREATHER FOR LOW SPO2 BUT WAS QUICKLY TITRATED DOWN TO NC AND THEN RM AIR WHERE HE MAINTAINED SPO2 >92%. BP WNL AND STABLE. MONITOR SHOWING SR 70'S PT HAD NAUSEA W RETCHING AND WAS GIVEN ZOFRAN AND REGLAN W RELEIF. PT DENYING ANY PAIN. REPORT GIVEN TO RUSTY HENAO. PT TO BE TRANSFERED.
[2023-04-05 01:22] VITALS: BP 169/87
[2023-04-05 05:09] LABS: BASOPHILS ABSOLUTE AUTO 0.03 K/mm3 (0.00-0.23); BASOPHILS PERCENT AUTO 0 % (0-2); EOSINOPHILS ABSOLUTE AUTO 0.26 K/mm3 (0.00-0.68); EOSINOPHILS PERCENT AUTO 3 % (0-6); Hematocrit 31.3 % (37.0-53.0); Hemoglobin 10.1 g/dL (13.5-17.5); IMMATURE GRAN ABSOLUTE AUTO 0.11 K/mm3 (0.00-0.10); IMMATURE GRAN PERCENT AUTO 1 % (0-1); LYMPHOCYTES ABSOLUTE AUTO 2.86 K/mm3 (0.84-5.20); LYMPHOCYTES PERCENT AUTO 30 % (21-46); MONOCYTES ABSOLUTE AUTO 0.51 K/mm3 (0.16-1.47); MONOCYTES PERCENT AUTO 5 % (4-13); Mean Corpuscular HGB 27.4 pg (26.0-34.0); Mean Corpuscular HGB Conc 32.3 g/dL (31.5-36.5); Mean Corpuscular Volume 85 fL (80-100); NEUTROPHILS ABSOLUTE AUTO 5.77 K/mm3 (1.96-9.15); NEUTROPHILS PERCENT AUTO 61 % (41-73); Platelet Count 536 K/mm3 (150-400); RDW Coefficient Variation 13.1 % (11.7-14.2); RDW Standard Deviation 40.9 fL (35.1-46.3); Red Blood Cell Count 3.68 M/mm3 (4.30-5.90); White Blood Cell Count 9.54 K/mm3 (4.00-11.30)
--- NOTE | 2023-04-05 05:10 | NUR ---
SHIFT SUMMERY. PT VERY SLEEPY AFTER SURGERY. BUT AWOKE ABOUT 220. PT GIVEN A HALF SANDWICH. PT DENED WANTING ANY MORE, PTS CAME ABOUT 2300 TO STAY BY BEDSIDE ON DAYBED. PT MEDICATED FOR PAIN X 1, NO BLEEDING THROUGH DRG THROUGH LEFT 5TH DIGIET. SMOKE SAFETY REVIWED. CALL LIGHT IN REACH.
[2023-04-05 05:28] LABS: Albumin, Blood 1.4 g/dL (3.4-5.0); Anion Gap 9 mmol/L (6-16); Blood Urea Nitrogen 31 mg/dL (8-24); Bun/Creatinine Ratio 8.4 (12.0-20.0); CO2, Blood 21 mmol/L (21-32); Calcium, Blood 7.7 mg/dL (8.5-10.1); Chloride, Blood 110 mmol/L (98-108); Creatinine, Blood 3.67 mg/dL (0.60-1.20); Glomerular Filtration Rate 20 (60-); Glucose, Blood 124 mg/dL (70-99); Phosphorus, Blood 5.1 mg/dL (2.5-4.9); Sodium, Blood 140 mmol/L (136-145)
[2023-04-05 05:47] VITALS: BP 188/104
[2023-04-05 07:38] VITALS: BP 183/101
[2023-04-05 16:47] VITALS: BP 120/73
--- NOTE | 2023-04-05 17:39 | NUR ---
SHIFT SUMMARY DR MARRERO IN DURING SHIFT REPORT, COMPLETING DRSG CHANGE TO L FOOT. PT DENIED NEEDS. NO C/O. IV ABX ADMIN THRU OUT THE DAY, PER EMAR. PT'S IN RM AT BS UNTIL JUST NOW. TO RETURN IN AM. PT HAS BEEN PLEASANT AND CO-OP WITH CARE. MORBIDLY OBESE, MAKING MOBILITY IN BED DIFFICULT. PT USING URINAL IN BED. UA OBTAINED EARLIER, BUT REJECTED BY LAB. PT INFORMED ADDITIONAL UA TO BE OBTAINED. PT HYPERTENSIVE THIS AM; MEDICATIONS ADJUSTED, SEE EMAR. PT RESTING QUIETLY MOST OF THE DAY. DENIED NEEDS AT THIS TIME. CALL LT IN REACH.
[2023-04-05 19:18] VITALS: BP 117/62
[2023-04-05 22:14] LABS: Source, Urine Clean Catch
[2023-04-05 23:41] LABS: Bilirubin, Urine Neg (Neg); Blood, Urine 3+ (Neg); Color, Urine Yellow (P-Yellow); Glucose Qualitative, Urine 3+ (Neg); Ketones, Urine Neg (Neg); Leukocyte Esterase, Urine Neg (Neg); Nitrite, Urine Neg (Neg); Protein, Urine 4+ (Neg); Specific Gravity, Urine 1.015 (1.003-1.022); Urobilinogen, Urine NORM (Normal)
[2023-04-06 00:57] LABS: Appearance, Urine Clear (Clear)
[2023-04-06 00:58] LABS: Bacteria Few /hpf; Squamous Epithelial Cells Few /hpf (Few)
[2023-04-06 00:59] LABS: Amorphous Light (0-Heavy); Hyaline Casts 0-2 /lpf (0-2)
[2023-04-06 04:32] VITALS: BP 175/90
--- NOTE | 2023-04-06 04:59 | NUR ---
SHIFT SUMMERY. PT RESTING IN BED, PT UPSET DUE TO CONTINUS PULSE OX ALARMING. PT REFUSING CPAP AND TO HAVE ON CONTINUS PULSE OX. PT SIGNED FORM TO NOT HAVE CPAP. PT RESTING ON AND OFF DURING THE NIGHT, PT STATED HE WAS HAVING DIFFICULTY TURNING OFF HIS MIND SO HE COULD SLEEP. TURNED ON CARE ALE AND PT STATED THAT SEEMED TO HELP A LITTLE. CALL LIGHT IN REACH. PT MERRITT AND COOPERATIVE NOW. FIRE SAFETY REVIEWED.
[2023-04-06 07:11] LABS: Albumin, Blood 1.4 g/dL (3.4-5.0); Anion Gap 7 mmol/L (6-16); Blood Urea Nitrogen 32 mg/dL (8-24); Bun/Creatinine Ratio 9.2 (12.0-20.0); CO2, Blood 21 mmol/L (21-32); Calcium, Blood 7.5 mg/dL (8.5-10.1); Chloride, Blood 110 mmol/L (98-108); Creatinine, Blood 3.48 mg/dL (0.60-1.20); Glomerular Filtration Rate 21 (60-); Glucose, Blood 158 mg/dL (70-99); Phosphorus, Blood 4.2 mg/dL (2.5-4.9); Sodium, Blood 138 mmol/L (136-145)
[2023-04-06 09:10] LABS: COMPLEMENT C3, SERUM 166 mg/dL (82-167); COMPLEMENT C4, SERUM 23 mg/dL (12-38)
--- NOTE | 2023-04-06 19:20 | NUR ---
PT LAYING QUIETLY IN BED EATTING DINNER PARTNER BROUGHT. NO C/O PAIN NO DISTRESS. REPORT GIVEN
[2023-04-06 19:23] VITALS: BP 156/77
--- NOTE | 2023-04-07 04:13 | NUR ---
SHIFT SUMMARY PATIENT HAD NO ACUTE CHANGES. AXOX 4 AND ONE ASSIST W/FWW TO BR. PIV REMAINS INTACT. IV ABX INFUSED. CBG 218. VSS/AFEBRILE. DENIES CHEST PAIN, SOB, AND N/V. REPORTED LEFT FOOT PAIN X ONE AND OXYCODONE 5 MG GIVEN PER EMAR. SIGNIFICANT OTHER STAYED THE NIGHT. FIRE SAFETY AND EDUCATION ROUNDING. COOPERATIVE WITH CARE. CALL LIGHT IN REACH. BED IN LOWEST POSITION. WILL CONTINUE TO MONITOR UNTIL DAY SHIFT NURSE ASSUMES CARE.
[2023-04-07 04:43] VITALS: BP 136/62
[2023-04-07 05:34] LABS: BASOPHILS ABSOLUTE AUTO 0.04 K/mm3 (0.00-0.23); BASOPHILS PERCENT AUTO 1 % (0-2); EOSINOPHILS ABSOLUTE AUTO 0.25 K/mm3 (0.00-0.68); EOSINOPHILS PERCENT AUTO 3 % (0-6); Hematocrit 30.5 % (37.0-53.0); IMMATURE GRAN PERCENT AUTO 1 % (0-1); LYMPHOCYTES PERCENT AUTO 39 % (21-46); MONOCYTES ABSOLUTE AUTO 0.38 K/mm3 (0.16-1.47); MONOCYTES PERCENT AUTO 5 % (4-13); Mean Corpuscular HGB 28.2 pg (26.0-34.0); Mean Corpuscular HGB Conc 32.8 g/dL (31.5-36.5); Mean Corpuscular Volume 86 fL (80-100); NEUTROPHILS ABSOLUTE AUTO 3.83 K/mm3 (1.96-9.15); NEUTROPHILS PERCENT AUTO 51 % (41-73); Platelet Count 519 K/mm3 (150-400); RDW Standard Deviation 41.1 fL (35.1-46.3); Red Blood Cell Count 3.54 M/mm3 (4.30-5.90)
[2023-04-07 05:56] LABS: Albumin, Blood 1.3 g/dL (3.4-5.0); Anion Gap 9 mmol/L (6-16); Blood Urea Nitrogen 38 mg/dL (8-24); Bun/Creatinine Ratio 10.6 (12.0-20.0); CO2, Blood 20 mmol/L (21-32); Calcium, Blood 7.5 mg/dL (8.5-10.1); Chloride, Blood 112 mmol/L (98-108); Creatinine, Blood 3.58 mg/dL (0.60-1.20); Glomerular Filtration Rate 20 (60-); Glucose, Blood 155 mg/dL (70-99); Phosphorus, Blood 4.7 mg/dL (2.5-4.9); Potassium, Blood 4.2 mmol/L (3.5-5.5); Sodium, Blood 141 mmol/L (136-145)
[2023-04-07 07:30] VITALS: BP 161/77
[2023-04-07] MEDS ORDERED: METO25ER PO (12:24)
[2023-04-07] MEDS ORDERED: NIFE90ER PO (12:25)
[2023-04-07] MEDS ORDERED: SULTRIDS PO (12:25)
--- NOTE | 2023-04-07 15:29 | NUR ---
NOTES/DISCHARGE SUMMARY: PATIENT A&OX4. CALM, PLEASANT AND COOPERATIVE c CARE. DENIES CP/PRESSURE, N/V, SOB AND GENERALIZED PAIN. DRESSING CHANGED TO L FOOT WAS DONE EARLIER THIS AM BY DR. MARRERO. PATIENT RECEIVED SCHEDULED SCHEDULED MEDS PER EMAR. VITAL SIGNS REVIEWED. EATING AND DRINKING WELL WITHOUT ANY DIFFICULTIES. IV TO [facility]. PATIENT EDUCATED ON NON SMOKING POLICY, RISK FOR INJURY AND IGNITION SOURCES WHEN O2 IN USE. PATIENT DENIES SMOKING AND STATED UNDERSTANDING. PATIENT DISCHARGE HOME. DISCHARGE INSTRUCTIONS PACKET GIVEN TO PATIENT. EDUCATED PATIENT REGARDING ADMITTING DX, S/S, TX, WOUND CARE, AND ORAL ABX TX. PATIENT STATED UNDERSTANDING AND NO FURTHER QUESTIONS AT THIS TIME. RX WAS FAXED TO PATIENT PREFERRED PHARMACY ([facility]). ALL PATIENT PERSONAL BELONGINGS WERE SENT HOME WITH THE PATIENT. PATIENT LEFT THE ROOM AT AROUND 1520. PATIENT TRANSPORTED VIA WHEELCHAIR BY RN, COLETTE HUNG TO PATIENT ENTRANCE.
== END 2023-04-07 15:26 | disposition home or self-care (01) | DRG 255 ==
LOC: ER 08:54 → MEDS 08:55
PROVIDERS: Emergency Medicine; Family Medicine; Hospitalist; Podiatrist Foot & Ankle Surgery; ADMIT Internal Medicine
PROC: 0Y6Y0Z0 Detachment at Left 5th Toe, Complete, Open Approach (ICD-10-PCS; principal; 2023-04-04 16:00)
DX: E11.52 Type 2 diabetes mellitus with diabetic peripheral angiopathy with gangrene (principal); N17.0 Acute kidney failure with tubular necrosis; I96 Gangrene, not elsewhere classified; L02.612 Cutaneous abscess of left foot; Z68.42 Body mass index [BMI] 45.0-49.9, adult; S91.332A Puncture wound without foreign body, left foot, initial encounter; E11.621 Type 2 diabetes mellitus with foot ulcer; E78.00 Pure hypercholesterolemia, unspecified; E11.42 Type 2 diabetes mellitus with diabetic polyneuropathy; L97.529 Non-pressure chronic ulcer of other part of left foot with unspecified severity; E11.22 Type 2 diabetes mellitus with diabetic chronic kidney disease; E11.21 Type 2 diabetes mellitus with diabetic nephropathy; I12.9 Hypertensive chronic kidney disease with stage 1 through stage 4 chronic kidney disease, or unspecified chronic kidney disease; H54.7 Unspecified visual loss; E88.09 Other disorders of plasma-protein metabolism, not elsewhere classified; F32.A Depression, unspecified; D63.1 Anemia in chronic kidney disease; N18.31 Chronic kidney disease, stage 3a; E66.01 Morbid (severe) obesity due to excess calories; E11.319 Type 2 diabetes mellitus with unspecified diabetic retinopathy without macular edema; W45.0XXA Nail entering through skin, initial encounter; Z79.4 Long term (current) use of insulin; Z79.899 Other long term (current) drug therapy; Z87.891 Personal history of nicotine dependence; Z89.431 Acquired absence of right foot
CPT/HCPCS: 36415; 73630; 73718; 80048; 80053; 80069; 80202; 81001; 82550; 82570; 82947; 83036; 84156; 84165; 84300; 85025; 85651; 86140; 86160; 87070; 87075; 87086; 87106; 87147; 87205; 88305; 88311; 90471; 90714; 94660; 94762; 96365; 96366; 96367; 96372; 96376; 97116; 97162; 97530; 99284-25; A9270; G0378; J1644; J1815; J2020; J2185; J2250; J2371; J2405; J2543; J2704; J2765; J2795; J3010; J3370; J7050; J7120

== ENCOUNTER 2023-04-26 05:33 | Day surgery (SDC) | payer MEDICARE, OTHER ==
[~2023-04-26 05:33] MED LIST changes: +ATORVASTATIN CA40 M1 PO; +GABA800 PO; +METO25ER PO; +NIFE90ER PO; +PIOGLITAZONE HC15 MG PO; +SULTRIDS PO
== END 2023-04-26 22:47 | disposition home or self-care (01) ==
LOC: WOUND 05:33
DX: T87.44 Infection of amputation stump, left lower extremity (principal); L97.529 Non-pressure chronic ulcer of other part of left foot with unspecified severity; E11.621 Type 2 diabetes mellitus with foot ulcer; I87.2 Venous insufficiency (chronic) (peripheral); E11.51 Type 2 diabetes mellitus with diabetic peripheral angiopathy without gangrene; E11.42 Type 2 diabetes mellitus with diabetic polyneuropathy; Z89.422 Acquired absence of other left toe(s); L03.032 Cellulitis of left toe
CPT/HCPCS: G0463

== ENCOUNTER 2023-05-01 00:13 | Day surgery (SDC) | payer MEDICARE, OTHER | END 2023-05-01 22:49 | disposition home or self-care (01) | LOC: WOUND 00:13 | DX: T81.89XA Other complications of procedures, not elsewhere classified, initial encounter (principal); I10 Essential (primary) hypertension; E11.42 Type 2 diabetes mellitus with diabetic polyneuropathy; E78.5 Hyperlipidemia, unspecified; E11.621 Type 2 diabetes mellitus with foot ulcer; L97.529 Non-pressure chronic ulcer of other part of left foot with unspecified severity; I87.2 Venous insufficiency (chronic) (peripheral); Z89.422 Acquired absence of other left toe(s); Y83.8 Other surgical procedures as the cause of abnormal reaction of the patient, or of later complication, without mention of misadventure at the time of the procedure | CPT/HCPCS: A9270 ==

== ENCOUNTER 2023-05-08 01:27 | Day surgery (SDC) | payer MEDICARE, OTHER | END 2023-05-08 22:56 | disposition home or self-care (01) | LOC: WOUND 01:27 | DX: E11.621 Type 2 diabetes mellitus with foot ulcer (principal); L97.525 Non-pressure chronic ulcer of other part of left foot with muscle involvement without evidence of necrosis; I87.2 Venous insufficiency (chronic) (peripheral); E11.51 Type 2 diabetes mellitus with diabetic peripheral angiopathy without gangrene; E11.42 Type 2 diabetes mellitus with diabetic polyneuropathy; L03.032 Cellulitis of left toe; I10 Essential (primary) hypertension; E78.5 Hyperlipidemia, unspecified; Z89.422 Acquired absence of other left toe(s) | CPT/HCPCS: A9270 ==

== ENCOUNTER 2023-05-22 01:16 | Day surgery (SDC) | payer MEDICARE, OTHER | END 2023-05-22 22:50 | disposition home or self-care (01) | LOC: WOUND 01:16 | DX: E11.621 Type 2 diabetes mellitus with foot ulcer (principal); L97.523 Non-pressure chronic ulcer of other part of left foot with necrosis of muscle; I10 Essential (primary) hypertension; E78.5 Hyperlipidemia, unspecified; L03.032 Cellulitis of left toe; E11.42 Type 2 diabetes mellitus with diabetic polyneuropathy; I87.2 Venous insufficiency (chronic) (peripheral); E11.51 Type 2 diabetes mellitus with diabetic peripheral angiopathy without gangrene; Z89.422 Acquired absence of other left toe(s) | CPT/HCPCS: A9270 ==

== ENCOUNTER 2023-05-29 01:53 | Day surgery (SDC) | payer MEDICARE, OTHER | END 2023-05-29 23:03 | disposition home or self-care (01) | LOC: WOUND 01:53 | DX: E11.621 Type 2 diabetes mellitus with foot ulcer (principal); L97.525 Non-pressure chronic ulcer of other part of left foot with muscle involvement without evidence of necrosis; I87.2 Venous insufficiency (chronic) (peripheral); E11.42 Type 2 diabetes mellitus with diabetic polyneuropathy; E11.51 Type 2 diabetes mellitus with diabetic peripheral angiopathy without gangrene; L03.032 Cellulitis of left toe; E78.5 Hyperlipidemia, unspecified; I10 Essential (primary) hypertension; Z89.422 Acquired absence of other left toe(s) | CPT/HCPCS: 87070; 87077; 87186; 87205; A9270; G0463 ==

== ENCOUNTER 2023-06-12 00:37 | Day surgery (SDC) | payer MEDICARE, OTHER | END 2023-06-12 23:01 | disposition home or self-care (01) | LOC: WOUND 00:37 | DX: E11.621 Type 2 diabetes mellitus with foot ulcer (principal); L97.525 Non-pressure chronic ulcer of other part of left foot with muscle involvement without evidence of necrosis; I87.2 Venous insufficiency (chronic) (peripheral); E11.51 Type 2 diabetes mellitus with diabetic peripheral angiopathy without gangrene; L03.032 Cellulitis of left toe; E11.42 Type 2 diabetes mellitus with diabetic polyneuropathy; Z89.422 Acquired absence of other left toe(s) | CPT/HCPCS: G0463 ==

== ENCOUNTER 2023-06-19 01:14 | Day surgery (SDC) | payer MEDICARE, OTHER | END 2023-06-19 23:13 | disposition home or self-care (01) | LOC: WOUND 01:14 | DX: T87.44 Infection of amputation stump, left lower extremity (principal); E11.621 Type 2 diabetes mellitus with foot ulcer; L97.525 Non-pressure chronic ulcer of other part of left foot with muscle involvement without evidence of necrosis; I87.2 Venous insufficiency (chronic) (peripheral); E11.51 Type 2 diabetes mellitus with diabetic peripheral angiopathy without gangrene; E11.42 Type 2 diabetes mellitus with diabetic polyneuropathy; Z89.422 Acquired absence of other left toe(s); L03.032 Cellulitis of left toe | CPT/HCPCS: A9270; G0463 ==

== ENCOUNTER 2023-06-26 02:00 | Day surgery (SDC) | payer MEDICARE, OTHER | END 2023-06-26 22:54 | disposition home or self-care (01) | LOC: WOUND 02:00 | DX: T87.44 Infection of amputation stump, left lower extremity (principal); E11.621 Type 2 diabetes mellitus with foot ulcer; L97.529 Non-pressure chronic ulcer of other part of left foot with unspecified severity; I87.2 Venous insufficiency (chronic) (peripheral); E11.51 Type 2 diabetes mellitus with diabetic peripheral angiopathy without gangrene; E11.42 Type 2 diabetes mellitus with diabetic polyneuropathy; L03.032 Cellulitis of left toe | CPT/HCPCS: A9270 ==

== ENCOUNTER 2023-07-03 03:04 | Day surgery (SDC) | payer MEDICARE, OTHER | END 2023-07-05 22:56 | disposition home or self-care (01) | LOC: WOUND 03:04 | DX: T87.44 Infection of amputation stump, left lower extremity (principal); L97.529 Non-pressure chronic ulcer of other part of left foot with unspecified severity; E11.621 Type 2 diabetes mellitus with foot ulcer; I87.2 Venous insufficiency (chronic) (peripheral); E11.51 Type 2 diabetes mellitus with diabetic peripheral angiopathy without gangrene; E11.42 Type 2 diabetes mellitus with diabetic polyneuropathy; L03.032 Cellulitis of left toe | CPT/HCPCS: A9270; G0463 ==

== ENCOUNTER 2023-07-10 02:20 | Day surgery (SDC) | payer MEDICARE, OTHER | END 2023-07-10 22:53 | disposition home or self-care (01) | LOC: WOUND 02:20 | DX: E11.621 Type 2 diabetes mellitus with foot ulcer (principal); L97.529 Non-pressure chronic ulcer of other part of left foot with unspecified severity; L03.032 Cellulitis of left toe; I87.2 Venous insufficiency (chronic) (peripheral); E11.51 Type 2 diabetes mellitus with diabetic peripheral angiopathy without gangrene; E11.42 Type 2 diabetes mellitus with diabetic polyneuropathy; I10 Essential (primary) hypertension; E78.5 Hyperlipidemia, unspecified; Z89.422 Acquired absence of other left toe(s) | CPT/HCPCS: G0463 ==

== ENCOUNTER 2023-07-17 03:04 | Day surgery (SDC) | payer MEDICARE, OTHER | END 2023-07-17 22:43 | disposition home or self-care (01) | LOC: WOUND 03:04 | DX: E11.621 Type 2 diabetes mellitus with foot ulcer (principal); L97.529 Non-pressure chronic ulcer of other part of left foot with unspecified severity; I87.2 Venous insufficiency (chronic) (peripheral); I73.9 Peripheral vascular disease, unspecified; E11.42 Type 2 diabetes mellitus with diabetic polyneuropathy; L03.032 Cellulitis of left toe; Z89.422 Acquired absence of other left toe(s) | CPT/HCPCS: G0463 ==

== ENCOUNTER 2023-07-24 00:50 | Day surgery (SDC) | payer MEDICARE, OTHER | END 2023-07-24 22:52 | disposition home or self-care (01) | LOC: WOUND 00:50 | DX: E11.621 Type 2 diabetes mellitus with foot ulcer (principal); L97.523 Non-pressure chronic ulcer of other part of left foot with necrosis of muscle; L03.032 Cellulitis of left toe; I87.2 Venous insufficiency (chronic) (peripheral); E11.51 Type 2 diabetes mellitus with diabetic peripheral angiopathy without gangrene; E11.42 Type 2 diabetes mellitus with diabetic polyneuropathy; I10 Essential (primary) hypertension; E78.5 Hyperlipidemia, unspecified; Z89.422 Acquired absence of other left toe(s) | CPT/HCPCS: G0463 ==

== ENCOUNTER 2023-07-31 02:57 | Day surgery (SDC) | payer MEDICARE, OTHER | END 2023-07-31 23:04 | disposition home or self-care (01) | LOC: WOUND 02:57 | DX: T87.44 Infection of amputation stump, left lower extremity (principal); T87.89 Other complications of amputation stump; E11.42 Type 2 diabetes mellitus with diabetic polyneuropathy; I10 Essential (primary) hypertension; E78.5 Hyperlipidemia, unspecified; I87.2 Venous insufficiency (chronic) (peripheral); E11.621 Type 2 diabetes mellitus with foot ulcer; E11.51 Type 2 diabetes mellitus with diabetic peripheral angiopathy without gangrene; Z89.422 Acquired absence of other left toe(s); L03.032 Cellulitis of left toe | CPT/HCPCS: G0463 ==

== ENCOUNTER 2023-08-07 03:09 | Day surgery (SDC) | payer MEDICARE, OTHER | END 2023-08-07 23:04 | disposition home or self-care (01) | LOC: WOUND 03:09 | DX: T87.44 Infection of amputation stump, left lower extremity (principal); L97.529 Non-pressure chronic ulcer of other part of left foot with unspecified severity; E11.621 Type 2 diabetes mellitus with foot ulcer; I87.2 Venous insufficiency (chronic) (peripheral); E11.51 Type 2 diabetes mellitus with diabetic peripheral angiopathy without gangrene; E11.42 Type 2 diabetes mellitus with diabetic polyneuropathy; Z89.422 Acquired absence of other left toe(s); L03.032 Cellulitis of left toe | CPT/HCPCS: G0463 ==

== ENCOUNTER 2023-08-14 03:52 | Day surgery (SDC) | payer MEDICARE, OTHER | END 2023-08-14 22:53 | disposition home or self-care (01) | LOC: WOUND 03:52 | DX: E11.621 Type 2 diabetes mellitus with foot ulcer (principal); L97.522 Non-pressure chronic ulcer of other part of left foot with fat layer exposed; I87.2 Venous insufficiency (chronic) (peripheral); E11.42 Type 2 diabetes mellitus with diabetic polyneuropathy; E11.51 Type 2 diabetes mellitus with diabetic peripheral angiopathy without gangrene; I10 Essential (primary) hypertension; E78.5 Hyperlipidemia, unspecified; L03.032 Cellulitis of left toe; Z89.422 Acquired absence of other left toe(s) | CPT/HCPCS: G0463 ==

== ENCOUNTER 2023-08-21 04:35 | Day surgery (SDC) | payer MEDICARE, OTHER | END 2023-08-21 23:13 | disposition home or self-care (01) | LOC: WOUND 04:35 | DX: E11.621 Type 2 diabetes mellitus with foot ulcer (principal); L97.522 Non-pressure chronic ulcer of other part of left foot with fat layer exposed; E11.42 Type 2 diabetes mellitus with diabetic polyneuropathy; I10 Essential (primary) hypertension; E78.5 Hyperlipidemia, unspecified; I87.2 Venous insufficiency (chronic) (peripheral); E11.51 Type 2 diabetes mellitus with diabetic peripheral angiopathy without gangrene; L03.032 Cellulitis of left toe; Z89.422 Acquired absence of other left toe(s) | CPT/HCPCS: G0463 ==

== ENCOUNTER → 2023-08-24 | Outpatient (CLI) | payer MEDICARE, OTHER ==
[2023-08-24 11:47] LABS: Source, Urine Voided
[2023-08-24 13:41] LABS: Appearance, Urine Hazy (Clear); Bilirubin, Urine Neg (Neg); Blood, Urine 3+ (Neg); Color, Urine Yellow (P-Yellow); Glucose Qualitative, Urine 3+ (Neg); Ketones, Urine Neg (Neg); Leukocyte Esterase, Urine Neg (Neg); Nitrite, Urine Neg (Neg); Protein, Urine 4+ (Neg); Specific Gravity, Urine 1.015 (1.003-1.022); Urobilinogen, Urine NORM (Normal)
[2023-08-24 14:03] LABS: Bacteria Rare /hpf; Granular Casts 0-2 /lpf (0); Hyaline Casts 0-2 /lpf (0-2); Squamous Epithelial Cells Rare /hpf (Few)
[2023-08-24 14:09] LABS: Protein, Urine Random 483.2 mg/dL (0.0-11.9); Protein/Creat Ratio, Ur Random 4.4
== END ==
LOC: LAB 11:15 → LAB SHORT 11:15
PROVIDERS: Hospitalist
DX: N18.4 Chronic kidney disease, stage 4 (severe) (principal)
CPT/HCPCS: 81001; 82570; 84156

== ENCOUNTER 2023-08-28 02:19 | Day surgery (SDC) | payer MEDICARE, OTHER | END 2023-08-28 22:56 | disposition home or self-care (01) | LOC: WOUND 02:19 | DX: T87.44 Infection of amputation stump, left lower extremity (principal); E11.621 Type 2 diabetes mellitus with foot ulcer; L97.529 Non-pressure chronic ulcer of other part of left foot with unspecified severity; I87.2 Venous insufficiency (chronic) (peripheral); E11.51 Type 2 diabetes mellitus with diabetic peripheral angiopathy without gangrene; L03.032 Cellulitis of left toe | CPT/HCPCS: G0463 ==

== ENCOUNTER 2023-09-06 05:21 | Day surgery (SDC) | payer MEDICARE, OTHER | END 2023-09-06 22:57 | disposition home or self-care (01) | LOC: WOUND 05:21 | DX: E11.621 Type 2 diabetes mellitus with foot ulcer (principal); L97.529 Non-pressure chronic ulcer of other part of left foot with unspecified severity; I87.2 Venous insufficiency (chronic) (peripheral); E11.51 Type 2 diabetes mellitus with diabetic peripheral angiopathy without gangrene; E11.42 Type 2 diabetes mellitus with diabetic polyneuropathy; Z89.422 Acquired absence of other left toe(s); L03.032 Cellulitis of left toe | CPT/HCPCS: G0463 ==

== ENCOUNTER 2023-09-13 03:08 | Day surgery (SDC) | payer MEDICARE, OTHER | END 2023-09-13 23:05 | disposition home or self-care (01) | LOC: WOUND 03:08 | DX: E11.621 Type 2 diabetes mellitus with foot ulcer (principal); L97.522 Non-pressure chronic ulcer of other part of left foot with fat layer exposed; I87.2 Venous insufficiency (chronic) (peripheral); E11.51 Type 2 diabetes mellitus with diabetic peripheral angiopathy without gangrene; E11.42 Type 2 diabetes mellitus with diabetic polyneuropathy; L03.032 Cellulitis of left toe; Z89.422 Acquired absence of other left toe(s) | CPT/HCPCS: G0463 ==

== ENCOUNTER 2023-09-18 04:57 | Day surgery (SDC) | payer MEDICARE, OTHER | END 2023-09-18 22:44 | disposition home or self-care (01) | LOC: WOUND 04:57 | DX: E11.621 Type 2 diabetes mellitus with foot ulcer (principal); L97.522 Non-pressure chronic ulcer of other part of left foot with fat layer exposed; E11.42 Type 2 diabetes mellitus with diabetic polyneuropathy; I10 Essential (primary) hypertension; E78.5 Hyperlipidemia, unspecified; I87.2 Venous insufficiency (chronic) (peripheral); E11.51 Type 2 diabetes mellitus with diabetic peripheral angiopathy without gangrene; L03.032 Cellulitis of left toe; Z89.422 Acquired absence of other left toe(s) | CPT/HCPCS: G0463 ==

== ENCOUNTER 2023-09-25 03:41 | Day surgery (SDC) | payer MEDICARE, OTHER | END 2023-09-25 23:18 | disposition home or self-care (01) | LOC: WOUND 03:41 | DX: E11.621 Type 2 diabetes mellitus with foot ulcer (principal); L97.522 Non-pressure chronic ulcer of other part of left foot with fat layer exposed; I87.2 Venous insufficiency (chronic) (peripheral); E11.51 Type 2 diabetes mellitus with diabetic peripheral angiopathy without gangrene; E11.42 Type 2 diabetes mellitus with diabetic polyneuropathy; L03.032 Cellulitis of left toe; Z89.422 Acquired absence of other left toe(s); I10 Essential (primary) hypertension; E78.5 Hyperlipidemia, unspecified | CPT/HCPCS: G0463 ==

== ENCOUNTER 2023-10-02 03:37 | Day surgery (SDC) | payer MEDICARE, OTHER | END 2023-10-02 22:58 | disposition home or self-care (01) | LOC: WOUND 03:37 | DX: T87.44 Infection of amputation stump, left lower extremity (principal); E11.621 Type 2 diabetes mellitus with foot ulcer; I87.2 Venous insufficiency (chronic) (peripheral); E11.51 Type 2 diabetes mellitus with diabetic peripheral angiopathy without gangrene; E11.42 Type 2 diabetes mellitus with diabetic polyneuropathy; Z89.422 Acquired absence of other left toe(s); L03.032 Cellulitis of left toe; L97.529 Non-pressure chronic ulcer of other part of left foot with unspecified severity | CPT/HCPCS: G0463 ==

== ENCOUNTER 2024-09-24 08:05 | Day surgery (SDC) | payer MEDICARE, OTHER | END 2024-09-24 23:00 | disposition home or self-care (01) | LOC: WOUND 08:05 | DX: E11.621 Type 2 diabetes mellitus with foot ulcer (principal); L97.412 Non-pressure chronic ulcer of right heel and midfoot with fat layer exposed; E11.40 Type 2 diabetes mellitus with diabetic neuropathy, unspecified; I10 Essential (primary) hypertension; E78.5 Hyperlipidemia, unspecified | CPT/HCPCS: G0463 ==

== ENCOUNTER 2024-09-29 19:18 | Inpatient (IN) | payer MEDICARE, OTHER ==
[~2024-09-29] VITALS: Ht 175.3 cm; Wt 136.1 kg
[2024-09-29] MEDS ORDERED: Lactated Ringer's 1,000 ML IV ONE (19:35)
[2024-09-29 19:41] LABS: Calcium, Ionized (POC) 1.09 mmol/L (1.10-1.46); Chloride (POC) 121 mmol/L (98-108); Creatinine (POC) 6.9 mg/dL (0.8-1.3); Glucose (ISTAT POC) 109 mg/dL (70-99); Hemoglobin (POC) 11.2 g/dL (13.5-17.5); Potassium (POC) >9.0 mmol/L (3.5-5.5); Sodium (POC) 142 mmol/L (135-148); Total CO2 (POC) 10 mmol/L (21-32)
[2024-09-29 19:45] LABS: BASOPHILS ABSOLUTE AUTO 0.05 K/mm3 (0.00-0.23); BASOPHILS PERCENT AUTO 1 % (0-2); EOSINOPHILS ABSOLUTE AUTO 0.31 K/mm3 (0.00-0.68); EOSINOPHILS PERCENT AUTO 4 % (0-6); Hematocrit 32.3 % (37.0-53.0); Hemoglobin 9.6 g/dL (13.5-17.5); IMMATURE GRAN ABSOLUTE AUTO 0.04 K/mm3 (0.00-0.10); IMMATURE GRAN PERCENT AUTO 1 % (0-1); LYMPHOCYTES ABSOLUTE AUTO 2.55 K/mm3 (0.84-5.20); LYMPHOCYTES PERCENT AUTO 36 % (21-46); MONOCYTES ABSOLUTE AUTO 0.39 K/mm3 (0.16-1.47); MONOCYTES PERCENT AUTO 5 % (4-13); Mean Corpuscular HGB 27.6 pg (26.0-34.0); Mean Corpuscular HGB Conc 29.7 g/dL (31.5-36.5); Mean Corpuscular Volume 93 fL (80-100); Mean Platelet Volume 9.9 fL (9.1-12.4); NEUTROPHILS ABSOLUTE AUTO 3.83 K/mm3 (1.96-9.15); NEUTROPHILS PERCENT AUTO 53 % (41-73); Platelet Count 462 K/mm3 (150-400); RDW Coefficient Variation 14.6 % (11.7-14.2); Red Blood Cell Count 3.48 M/mm3 (4.30-5.90); White Blood Cell Count 7.17 K/mm3 (4.00-11.30)
[2024-09-29] MEDS ORDERED: Insulin Regular 100 Unit/ML 1ML Dose IV ONE (19:45)
[2024-09-29] MEDS ORDERED: Dextrose 50% 50 ML Syringe IV ONE ×2 (19:45→21:30)
[2024-09-29] MEDS ORDERED: Sodium Bicarb 8.4% Inj 50 MEQ in NS 1,000 ML IV SCH (19:45)
[2024-09-29] MEDS ORDERED: Calcium Chloride 10% 1,000 MG in NS 50 ML IV ONE (19:45)
[2024-09-29] MEDS ORDERED: Dextrose 50% 50 ML Vial IV ONE ×2 (20:00→21:30)
[2024-09-29 20:03] LABS: Magnesium, Blood 1.7 mg/dL (1.6-2.4)
[2024-09-29 20:09] LABS: Albumin, Blood 2.7 g/dL (3.4-5.0); Albumin/Globulin Ratio 0.5 (0.8-1.8); Bilirubin, Total 0.2 mg/dL (0.1-1.0); Bun/Creatinine Ratio 12.1 (12.0-20.0); Calcium, Blood 8.5 mg/dL (8.5-10.1); Creatinine, Blood 6.11 mg/dL (0.60-1.20); Globulin, Blood 5.1 g/dL (2.2-4.0); Potassium, Blood 9.3 mmol/L (3.5-5.5); Total Protein, Blood 7.8 g/dL (6.4-8.2)
[2024-09-29] MEDS ORDERED: Dextrose 50% 50 ML Vial ONE ×3 (20:41→22:14)
[2024-09-29 21:04] LABS: CORONAVIRUS COVID-19 AG Negative (NEGATIVE); INFLUENZA A AG Negative (NEGATIVE); INFLUENZA B AG Negative (NEGATIVE)
[2024-09-29] MEDS ORDERED: Albuterol 2.5 MG/3 ML VIAL INH SCH (21:40)
[2024-09-29] MEDS ORDERED: Atropine Sulfate 0.1 MG/ML 10ML SYR IV PRN (22:10)
[2024-09-29] MEDS ORDERED: Acetaminophen 325 MG TABLET PO PRN (22:10)
[2024-09-29] MEDS ORDERED: FLU VACC TS2024-25(6MOS UP)/PF 45 MCG/0.5 ML SYRINGE IM ONE (22:10)
[2024-09-29] MEDS ORDERED: Sodium Bicarb 8.4% Inj 150 MEQ in Dextrose 5% 1,000 ML IV SCH (22:55)
[2024-09-29 23:01] LABS: Bun/Creatinine Ratio 11.9 (12.0-20.0); Calcium, Blood 8.9 mg/dL (8.5-10.1); Creatinine, Blood 6.04 mg/dL (0.60-1.20)
[2024-09-29 23:04] LABS: Potassium, Blood 8.7 mmol/L (3.5-5.5)
[2024-09-29 23:15] VITALS: BP 145/72
[2024-09-29] MEDS ORDERED: OMEP20ER PO (23:25)
[2024-09-29] MEDS ORDERED: TRADJENTA5 MG PO (23:25)
[2024-09-29 23:30] VITALS: BP 143/77
--- NOTE | 2024-09-29 23:43 | NUR ---
UPDATE CALLED AND SPOKE WITH DR HOLMAN REGARDING DIALYIS PORT TO RIGHT FEMORAL LINE, STATES " THE LINE IS GOOD, OK TO USE"
[2024-09-29 23:50] VITALS: BP 117/75; BP 143/77
[2024-09-29 23:55] VITALS: BP 117/75
[2024-09-30] VITALS (68 sets, daily range): BP systolic 99–158; BP diastolic 67–131
[2024-09-30] MEDS ORDERED: Anticoagulant Sod Citrate Soln 3 ML SYR INJ PRN ×2 (00:10→07:30)
--- NOTE | 2024-09-30 01:36 | NUR ---
UPDATE 2255 RECEIVED PT FROM ED VIA STRETCHER, TRANSFERRED TO ICU BED, PT AWAKE AND ALERT ORIENTED X4, FATIGUES EASILY WITH REPOSITIONING AND CONVERSATION, FOLLOWS COMMANDS, ABLE TO MAKE NEEDS KNOWN, PT OBESE, SB 40-50S, AFEBRILE, SBP 140S,DEFIB PADS REMAIN IN PLACE FROM PACING IN ED, PIV TO RIGHT AC AND LEFT AC PATENT AND CAPPED, RIGHT FEMORAL DIALYSIS TRIPLE LUMEN LINE PATENT, PT DENIES C/O PAIN OR SOB, 02 AT 2 LPM NC, NOTED EXCORIATION TO FALLON BREASTS ABD FOLD AND FALLON GROIN, DIALYSIS TREATMENT STARTED AT 2350. PT TOLERATING WELL ,DIALYSIS NURSE AT BEDSIDE, PT SR 70-80s, SPOUSE AT BEDSIDE, SIDE RAILS UP X2 CALL LIGHT IN REACH
[2024-09-30 03:46] LABS: BASOPHILS ABSOLUTE AUTO 0.03 K/mm3 (0.00-0.23); BASOPHILS PERCENT AUTO 0 % (0-2); EOSINOPHILS ABSOLUTE AUTO 0.26 K/mm3 (0.00-0.68); EOSINOPHILS PERCENT AUTO 4 % (0-6); Hematocrit 27.1 % (37.0-53.0); Hemoglobin 8.6 g/dL (13.5-17.5); IMMATURE GRAN ABSOLUTE AUTO 0.03 K/mm3 (0.00-0.10); IMMATURE GRAN PERCENT AUTO 0 % (0-1); LYMPHOCYTES ABSOLUTE AUTO 3.05 K/mm3 (0.84-5.20); LYMPHOCYTES PERCENT AUTO 41 % (21-46); MONOCYTES ABSOLUTE AUTO 0.32 K/mm3 (0.16-1.47); MONOCYTES PERCENT AUTO 4 % (4-13); Mean Corpuscular HGB Conc 31.7 g/dL (31.5-36.5); Mean Platelet Volume 9.9 fL (9.1-12.4); NEUTROPHILS ABSOLUTE AUTO 3.75 K/mm3 (1.96-9.15); NEUTROPHILS PERCENT AUTO 50 % (41-73); Platelet Count 352 K/mm3 (150-400); RDW Coefficient Variation 14.5 % (11.7-14.2); RDW Standard Deviation 46.7 fL (35.1-46.3); Red Blood Cell Count 3.07 M/mm3 (4.30-5.90); White Blood Cell Count 7.44 K/mm3 (4.00-11.30)
[2024-09-30 03:47] LABS: Mean Corpuscular Volume 88 fL (80-100)
[2024-09-30 04:06] LABS: Magnesium, Blood 1.2 mg/dL (1.6-2.4)
[2024-09-30 04:14] LABS: Albumin, Blood 2.6 g/dL (3.4-5.0); Anion Gap 11 mmol/L (3-11); Blood Urea Nitrogen 48 mg/dL (8-24); CO2, Blood 22 mmol/L (21-32); Calcium, Blood 8.3 mg/dL (8.5-10.1); Chloride, Blood 112 mmol/L (98-108); Creatinine, Blood 4.37 mg/dL (0.60-1.20); Glomerular Filtration Rate 16 (60-); Glucose, Blood 106 mg/dL (70-99); Phosphorus, Blood 3.9 mg/dL (2.5-4.9); Sodium, Blood 140 mmol/L (136-145)
[2024-09-30 04:17] LABS: Potassium, Blood 5.2 mmol/L (3.5-5.5)
--- NOTE | 2024-09-30 04:47 | NUR ---
UPDATE CALLED AND NOTIFIED DR CISNEROS OF MAG 1.2,NEW ORDERS RECEIVED FOR 2 GM MAG IVPB X1
[2024-09-30] MEDS ORDERED: Magnesium Sulf 2 GM/Water 50ML 50 ML IV ONE (04:50)
[2024-09-30] MEDS ORDERED: Omeprazole 20 MG CapCR PO SCH (06:00)
--- NOTE | 2024-09-30 06:09 | NUR ---
UPDATE SCHEDULED MEDS GIVEN PO, PT SWALLOWED WITHOUT DIFFICULTY, VSS, SR 70-80s, AFEBRILE,RESP 20s, SBP 130-140s, PIV TO RIGHT AND LEFT ARM PATENT WITH D5 WITH 1150 mEq NA BICARB INFUSING AT 125 ML/HR, AND MAG 2 GM INFUSING AT 25 ML/HR TO RIGHT AC PIV, TRIALYSIS CATH TO RIGHT FEMORAL PATENT AND CLAMPED, PT HAS NOT VOIDED ALL SHIFT, STATES HE HASNT VOIDED SINCE BEFORE ADMIT AND DOESNT NEED TO NOW, BLADDER SCAN DONE PER BLADDER MANAGEMENT PROTOCOL WITH NOTED 321 ML IN BLADDER. URINAL PLACED WITHIN REACH AND PT ENCOURAGED TO VOID 0620 PT VOIDED WITHOUT DIFFICULTY YELLOW URINE 350 ML
[2024-09-30] MEDS ORDERED: Insulin Human Lispro 100 Units/ML 3ML Syringe SC SCH (07:30)
[2024-09-30] MEDS ORDERED: Heparin Sodium 5000 Units/ML 1ML MDV SC SCH (09:00)
[2024-09-30] MEDS ORDERED: Citalopram Hydrobromide 20 MG Tab PO SCH (09:00)
[2024-09-30] MEDS ORDERED: Atorvastatin 40 MG Tab PO SCH (09:00)
--- NOTE | 2024-09-30 18:37 | NUR ---
Summary. Pt rested in bed throughout shift. Dialysis done at dialysis room this morning, pt tolerated procedure well. No acute changes this shift. See chart for further details.
--- NOTE | 2024-09-30 20:57 | NUR ---
START OF SHIFT THIS NURSE ASSUMED CARE AT APPROXIMATELY 1900. PT RESTING IN BED COMFORTABLY ON RA. PT ABLE TO STAND AND PIVOT TO COMMODE FOR BM WITH 1X ASSIST. PT HAS NO COMPLAINTS AT THIS TIME. WILL CONTINUE THE PLAN OF CARE.
[2024-10-01] VITALS: BP 161/85
[2024-10-01 03:49] LABS: BASOPHILS ABSOLUTE AUTO 0.04 K/mm3 (0.00-0.23); BASOPHILS PERCENT AUTO 1 % (0-2); EOSINOPHILS ABSOLUTE AUTO 0.24 K/mm3 (0.00-0.68); EOSINOPHILS PERCENT AUTO 4 % (0-6); Hematocrit 29.6 % (37.0-53.0); Hemoglobin 9.4 g/dL (13.5-17.5); IMMATURE GRAN ABSOLUTE AUTO 0.01 K/mm3 (0.00-0.10); IMMATURE GRAN PERCENT AUTO 0 % (0-1); LYMPHOCYTES ABSOLUTE AUTO 3.19 K/mm3 (0.84-5.20); LYMPHOCYTES PERCENT AUTO 49 % (21-46); MONOCYTES ABSOLUTE AUTO 0.48 K/mm3 (0.16-1.47); MONOCYTES PERCENT AUTO 7 % (4-13); Mean Corpuscular HGB 27.8 pg (26.0-34.0); Mean Corpuscular HGB Conc 31.8 g/dL (31.5-36.5); Mean Corpuscular Volume 88 fL (80-100); Mean Platelet Volume 9.9 fL (9.1-12.4); NEUTROPHILS ABSOLUTE AUTO 2.62 K/mm3 (1.96-9.15); NEUTROPHILS PERCENT AUTO 40 % (41-73); Platelet Count 328 K/mm3 (150-400); RDW Standard Deviation 44.8 fL (35.1-46.3); Red Blood Cell Count 3.38 M/mm3 (4.30-5.90); White Blood Cell Count 6.58 K/mm3 (4.00-11.30)
[2024-10-01 04:00] VITALS: BP 151/82
[2024-10-01 04:13] LABS: Magnesium, Blood 1.7 mg/dL (1.6-2.4); Percent Saturation 27.5 % (20.0-50.0)
[2024-10-01 04:16] LABS: Albumin, Blood 2.7 g/dL (3.4-5.0); Albumin/Globulin Ratio 0.6 (0.8-1.8); Bilirubin, Total 0.4 mg/dL (0.1-1.0); Bun/Creatinine Ratio 9.4 (12.0-20.0); Creatinine, Blood 4.13 mg/dL (0.60-1.20); Globulin, Blood 4.6 g/dL (2.2-4.0); Phosphorus, Blood 2.6 mg/dL (2.5-4.9); Potassium, Blood 6.1 mmol/L (3.5-5.5); Total Protein, Blood 7.3 g/dL (6.4-8.2)
[2024-10-01] MEDS ORDERED: Insulin Regular 100 UNIT/ML 10ML Vial IV ONE (04:20)
[2024-10-01] MEDS ORDERED: Dextrose 50% 50 ML Vial IV ONE (04:25)
[2024-10-01] MEDS ORDERED: CALCIUM GLUC IN NACL, ISO-OSM 50 ML IV ONE (04:45)
--- NOTE | 2024-10-01 05:43 | NUR ---
SHIFT SUMMARY PT RESTING IN BED AND SLEPT FOR MOST OF THE NIGHT. HYPERKALEMIA TREATED WITH 5 U INSULIN AND D50. CALCIUM REPLACED. PT DENIES PAIN. PT HAS NO FURTHER COMPLAINTS. WILL CONTINUE WITH PLAN OF CARE.
[2024-10-01 07:24] LABS: Albumin, Blood 2.5 g/dL (3.4-5.0); Anion Gap 10 mmol/L (3-11); Blood Urea Nitrogen 39 mg/dL (8-24); Bun/Creatinine Ratio 9.3 (12.0-20.0); CO2, Blood 26 mmol/L (21-32); Calcium, Blood 8.1 mg/dL (8.5-10.1); Chloride, Blood 109 mmol/L (98-108); Creatinine, Blood 4.18 mg/dL (0.60-1.20); Glomerular Filtration Rate 17 (60-); Glucose, Blood 115 mg/dL (70-99); Phosphorus, Blood 2.5 mg/dL (2.5-4.9); Potassium, Blood 5.6 mmol/L (3.5-5.5); Sodium, Blood 139 mmol/L (136-145)
[2024-10-01 08:55] VITALS: BP 143/86
[2024-10-01 09:00] VITALS: BP 137/87
[2024-10-01] MEDS ORDERED: Anticoagulant Sod Citrate Soln 3 ML SYR INJ PRN (09:30)
--- NOTE | 2024-10-01 09:38 | NUR ---
DIALYSIS NOTE R FEMORAL CATHETER DYSFUNTIONAL WITH POOR BLOOD FLOW. UNABLE TO COMPLETE DIALYSIS TX TODAY. DR. GUTIÉRREZ NOTIFIED AND PLANS FOR MEDICATION MANAGEMENT OF ELEVATED POTASIUM. PLANS DISCUSSED FOR NEW CVC IF ONGOING DIALYSIS NEEDED.
--- NOTE | 2024-10-01 12:55 | NUR ---
BSR PT WAS SLEEPING, BREAKFAST TRAY WAS SITTING AT BEDSIDE AT 0840, WALKED IN ROOM TO GIVE MEDICATIONS SO PATIENT COULD GO TO DIALYSIS. ANGRILY VOICED THAT HE HAS BEEN WAITING TO GO TO THE BATHROOM FOR 2 HOURS. ASSISTED TO THE BR, RETURNED TO BED, MEDS TAKEN, TO DIALYSIS, UNABLE TO DIALYZE RELATED TO CLOGGED LINE. PT RETURNED TO ROOM. SLEEPING. RIGHT FOOT WOUND REDRESSED, AWARE OF WOUND. PT HAS BEEN TREATED THROUGH OUTPATIENT WOUND THERAPY. NOTHING FURTHER.
[2024-10-01 13:41] LABS: HEPATITIS B SURFACE ANTIBODY <3.10 IU/L
[2024-10-01] MEDS ORDERED: Sodium Zirconium Cyclosilicate 10 GM Packet PO SCH (14:00)
[2024-10-01 15:06] LABS: HEPATITIS A ANTIBODY, IGM Negative (Negative); HEPATITIS B CORE ANTIBODY, IGM Negative (Negative); HEPATITIS B SURFACE ANTIGEN Negative (Negative); HEPATITIS C AB CIA INTERP Negative (Negative); HEPATITIS C ANTIBODY CIA INDEX 0.13 IV
--- NOTE | 2024-10-01 16:07 | NUR ---
TRIALYSIS CATH REMOVED, EDUCATION PROVIDED TO THE PATIENT, INFORMED ABOUT REASON FOR REMOVAL. IN TO SEE PT.
--- NOTE | 2024-10-01 18:59 | NUR ---
NO BIG CHANGES FOR ESTEFANY SINCE LAST NOTE. THE TRIALYSIS CATH SITE REMAINS C/D/I HIS FOOT DRESSING WAS PLACED AND WRAPPED WITH KERLIX. HE HAS ONLY BEEN OOB THE ONE TIME THIS AM. HE DID NOT LIKE DINNER, SO HE HAD A COUPLE OF 1/2 SANDWICHES WITH SOME CHEESE AND CONDIMENTS. HE VOIDED THE ONE TIME THIS AM. HE HAS ONLY HAD IN A COUPLE OF DIET PEPSI BEVERAGES. HE WAS NAPPING FOR MOST OF THE AFTERNOON. PIV TO LEFT FOREARM. WATCHING A MOVIE ON HIS PHONE. NO FURTHER CHANGES.
[2024-10-01 20:11] VITALS: BP 171/91
--- NOTE | 2024-10-01 21:31 | NUR ---
ASSUMPTIOM OF CARE: ASSUMED CARE OF PT AT 1915. PT ALERT AND ORIENTED, FOLLOWING DIRECTION AND MAKING NEEDS KNOWN. PT ABLE TO AMBULATE TO THE COMMODE IND. VOIDING DARK URINE. ON ELIGIBILITY SPECIALIST, SR WITH HR 80'S. SBP 170'S. DENIES CP/PRESSURE. PT ON RA WITH SPO2 MID TO HIGH 90'S. DENIES SOB. LUNGS CLEAR/DIM. PIV TO RAC PLACED THIS SHIFT, FLUSHES AND DRAWS. SALINE LOCKED. TOLERATING PO INTAKE WITH NO C/O N/V. BED LOCKED, CALL LIGHT IN REACH.
[2024-10-02] VITALS (13 sets, daily range): BP systolic 149–211; BP diastolic 78–116
[2024-10-02 04:14] LABS: Albumin, Blood 2.6 g/dL (3.4-5.0); Anion Gap 12 mmol/L (3-11); Blood Urea Nitrogen 40 mg/dL (8-24); Bun/Creatinine Ratio 8.9 (12.0-20.0); CO2, Blood 25 mmol/L (21-32); Calcium, Blood 8.2 mg/dL (8.5-10.1); Chloride, Blood 109 mmol/L (98-108); Creatinine, Blood 4.51 mg/dL (0.60-1.20); Glomerular Filtration Rate 15 (60-); Glucose, Blood 121 mg/dL (70-99); Phosphorus, Blood 3.3 mg/dL (2.5-4.9); Potassium, Blood 5.7 mmol/L (3.5-5.5); Sodium, Blood 140 mmol/L (136-145)
--- NOTE | 2024-10-02 06:03 | NUR ---
SHIFT SUMMARY: NO ACUTE CHANGES OVERNIGHT. PT ABLE TO REST OFF AND ON T/O THE NIGHT. NO NEURO CHANGES. PT MAKING NEEDS KNOWN. REMAINS ON RA T/O THE NIGHT. DENIES SOB. NO CARDIAC CHANGES. REMAINS IN SR WITH HR 80'S. DENIES CP/PRESSURE. TOLERATING PO INTAKE WITH NO COMPLAINTS. ABLE TO USE THE BATHROOM IND. NO BM THIS SHIFT. PIV TO RAC SALINE LOCKED. DRESSING TO RIGHT FOOT REMAINS INTACT. BED LOW AND LOCKED, CALL LIGHT IN REACH.
--- NOTE | 2024-10-02 11:23 | NUR ---
1055-CALL TO IN REGARDS TO NOT BEING AVAILABLE UNTIL LATER TODAY. HE WAS OKAY WITH THE NON URGENCY OF THE DIALYSIS CATHETER PLACEMENT. WILL UPDATE INFORMATION COMES.
[2024-10-02] MEDS ORDERED: NS 250 ML IV ONE (12:31)
[2024-10-02] MEDS ORDERED: Heparin Sodium 1000 Units/ML 10ML MDV ONE (12:31)
[2024-10-02] MEDS ORDERED: Midazolam HCl 1MG / ML 2ML Vial ONE ×2 (13:12→14:01)
[2024-10-02] MEDS ORDERED: FentaNYL Citrate 50 MCG/ML 2 ML Injection ONE (13:13)
[2024-10-02] MEDS ORDERED: NS 500 ML IV ONE (13:13)
--- NOTE | 2024-10-02 13:34 | NUR ---
1330 PT TO DESK ASSISTANT VIA WHEELCHAIR FOR PLACEMENT OF PERMACATH. SLIGHTLY UNSTEADY, NEEDED A SBA.
[2024-10-02] MEDS ORDERED: HydrALAZINE HCl 20 MG / ML 1ML Vial ONE (14:03)
[2024-10-02 18:04] LABS: HBV CORE ANTIBODIES,TOTAL Negative (Negative)
--- NOTE | 2024-10-02 18:13 | NUR ---
PT'S HEART RATE DROPPED TO 40S, WENT IN ROOM AND PT WAS HOLDING HIS MOUTH STATING HE WAS GOING TO THROW UP. HAD ABOUT 250ML OF EMESIS. HE STATES THIS HAPPENS WITH THE MEDICATION. EMESIS BAG GIVEN TO KEEP, HR RETURN TO NORMAL, WIPES GIVEN TO ASSIST WITH CLEAN UP IF NEEDED.
--- NOTE | 2024-10-02 18:45 | NUR ---
ESTEFANY WAS SLEEPY MOST OF THE MORNING. WAS ABLE TO GO TO THE LONG LINES OPERATOR AND HAVE HIS VASCULAR ACCESS PLACED. HE HAS BEEN VERY EMOTIONAL RELATED TO THE CHANGE IN HIS LIFE. HE STATES HE HAS WORKED HARD IN THE LAST YEAR OR SO TO IMPROVE HIS EATING, TAKING CARE OF HIMSELF, ETC AND THIS IS WHAT HAPPENS. LISTENED. ENCOURAGED. S/O JUST CAME IN TO SEE PATIENT. USED URINAL, ATE OKAY. EMESIS RECORDED.
[2024-10-02] MEDS ORDERED: HydrALAZINE HCl 25 MG Tab PO PRN (19:40)
[2024-10-02] MEDS ORDERED: HydrALAZINE HCl 25 MG Tab PO ONE (20:00)
[2024-10-02] MEDS ORDERED: Metoprolol Succinate 25 MG TABCR PO SCH (20:00)
[2024-10-02] MEDS ORDERED: NIFEdipine 90 MG TabCR PO SCH (20:00)
--- NOTE | 2024-10-02 20:36 | NUR ---
ASSUMPTION OF CARE: ASSUMED CARE OF PT AT 1900. PT ALERT AND ORIENTED. FOLLOWS DIRECTION AND MAKES NEEDS KNOWN. PT PLEASANT WITH CARE, ALTHOUGH VERY ANXIOUS AND TEARFUL AT START OF SHIFT. STATES HE WAS OVERWHELMED WITH HOW THE DAY WENT. PT CALM AND APPEARS COMFORTABLE AT THIS TIME. MEDICATED PER EMAR FOR HEADACHE WITH RELIEF, OTHERWISE NO C/O PAIN AT THIS TIME. ON RA WITH SPO2 MID 90'S, DENIES SOB. ADVERTISING SPECIALIST IN PLACE, SR WITH HR 80'S. SBP ELEVATED, 170-190'S. MEDICATED PER EMAR. DENIES CP/PRESSURE. PIV TO RAC, PATENT AND SALINE LOCKED. TOLERATING PO INTAKE. NO C/O N/V. VOIDING INTO THE URINAL IND. ABLE TO MOVE IN BED IND. DRESSING TO RIGHT FOOT CHANGED AT START OF SHIFT. BED LOW AND LOCKED, CALL LIGHT IN REACH.
[2024-10-03] VITALS (25 sets, daily range): BP systolic 95–158; BP diastolic 51–90
[2024-10-03 03:59] LABS: Albumin, Blood 2.7 g/dL (3.4-5.0); Anion Gap 12 mmol/L (3-11); Blood Urea Nitrogen 38 mg/dL (8-24); Bun/Creatinine Ratio 8.3 (12.0-20.0); CO2, Blood 24 mmol/L (21-32); Calcium, Blood 8.7 mg/dL (8.5-10.1); Chloride, Blood 111 mmol/L (98-108); Creatinine, Blood 4.57 mg/dL (0.60-1.20); Glomerular Filtration Rate 15 (60-); Glucose, Blood 134 mg/dL (70-99); Phosphorus, Blood 3.8 mg/dL (2.5-4.9); Potassium, Blood 4.8 mmol/L (3.5-5.5); Sodium, Blood 142 mmol/L (136-145)
--- NOTE | 2024-10-03 05:21 | NUR ---
SHIFT SUMMARY: NO ACUTE EVENTS OVERNIGHT. PT TEARFUL THIS MORNING AFTER LAB DRAW. REMAINS ALERT AND ORIENTED T/O THE NIGHT. ABLE TO REST OFF AND ON T/O THE NIGHT. PLACED ON 2L NC FOR SLEEP. PT OCCASIONALLY DESATTED TO THE 80'S WHILE SLEEPING BUT DID NOT SUSTAIN. DENIES SOB. DENIES PAIN THIS AM. ETL DATABASE DEVELOPER IN PLACE, SR WITH HR 80'S-90'S. SBP 110'S-150'S AFTER BLOOD PRESSURE MEDS. DENIES CP/PRESSURE. VOIDING INTO URINAL YELLOW URINE. TOLERATING PO INTAKE WELL WITH NO C/O N/V. PERMACATH TO RIGHT CHEST WALL REMAINS INTACT WITH NO OOZING OR HEMATOMA. NO BM THIS SHIFT. PIV TO RAC INTACT AND SALINE LOCKED. BED LOW AND LOCKED, CALL LIGHT IN REACH.
[2024-10-03] MEDS ORDERED: Anticoagulant Sod Citrate Soln 3 ML SYR INJ PRN (07:10)
--- NOTE | 2024-10-03 07:45 | NUR ---
[place] of care: Resting quietly in bed with no complaints. Neuro intact. Vital signs stable on room air. To go for HD treatment today. Withdrawn. Awaiting tele bed. Will continue to monitor.
[2024-10-03] MEDS ORDERED: Epoetin Alfa-EPBX 10,000 Unit/ML 1ML Vial SC SCH (09:00)
--- NOTE | 2024-10-03 17:04 | NUR ---
Shift summary: Neuro intact but withdrawn & appears possibly depressed. Rested in bed all day. HD treatment completed this morning. Vital signs all stable, but de-saturated to 85% on room air so placed on 3L NC. Updated on plan of care. Await floor bed with tele.
--- NOTE | 2024-10-03 19:58 | NUR ---
ASSESSMENT/ASSUMED CARE PT SITTING UP IN BED VISITING WITH . DENIES PAIN OR DISCOMFORT. A&O X4. SPEECH CLEAR AND APPROP. ANSWERING QUESTIONS APPROP. HEART RATE REGULAR IN THE 80'S. BP STABLE. DENIES CHEST PAIN OR PRESSURE. LUNGS CLEAR ON ROOMAIR. SPO2 94-98%. DENIES SOB OR COUGH. TALKED WITH PT AND ABOUT SLEEP APNEA AND NEED FOR O2 WHILE SLEEPING. PT EXPRESSED UNDERSTANDING. BT+ ABD SOFT AND NONTENDER. DENIES N/V. PT EATING DINNER WITH . IV TO RIGHT AC NONFLUSHING. DC'D INTACT. NEW IV 20G TO RIGHT FOREARM. ABLE TO DRAW BLOOD AND FLUSH WITHOUT DIFFICULTY.
[2024-10-03] MEDS ORDERED: Insulin Glargine-Yfgn 100 Unit/mL 3 ML SYR SC SCH (21:00)
[2024-10-04] VITALS (18 sets, daily range): BP systolic 93–169; BP diastolic 50–92
[2024-10-04 03:42] LABS: BASOPHILS ABSOLUTE AUTO 0.03 K/mm3 (0.00-0.23); BASOPHILS PERCENT AUTO 0 % (0-2); EOSINOPHILS ABSOLUTE AUTO 0.29 K/mm3 (0.00-0.68); EOSINOPHILS PERCENT AUTO 4 % (0-6); Hematocrit 29.3 % (37.0-53.0); Hemoglobin 9.3 g/dL (13.5-17.5); IMMATURE GRAN ABSOLUTE AUTO 0.03 K/mm3 (0.00-0.10); IMMATURE GRAN PERCENT AUTO 0 % (0-1); LYMPHOCYTES ABSOLUTE AUTO 3.23 K/mm3 (0.84-5.20); LYMPHOCYTES PERCENT AUTO 39 % (21-46); MONOCYTES ABSOLUTE AUTO 0.57 K/mm3 (0.16-1.47); MONOCYTES PERCENT AUTO 7 % (4-13); Mean Corpuscular HGB 28.2 pg (26.0-34.0); Mean Corpuscular HGB Conc 31.7 g/dL (31.5-36.5); Mean Corpuscular Volume 89 fL (80-100); Mean Platelet Volume 9.8 fL (9.1-12.4); NEUTROPHILS ABSOLUTE AUTO 4.22 K/mm3 (1.96-9.15); NEUTROPHILS PERCENT AUTO 50 % (41-73); Platelet Count 292 K/mm3 (150-400); RDW Coefficient Variation 13.6 % (11.7-14.2); RDW Standard Deviation 44.1 fL (35.1-46.3); White Blood Cell Count 8.37 K/mm3 (4.00-11.30)
[2024-10-04 04:27] LABS: Albumin, Blood 2.7 g/dL (3.4-5.0); Anion Gap 11 mmol/L (3-11); Blood Urea Nitrogen 29 mg/dL (8-24); CO2, Blood 27 mmol/L (21-32); Calcium, Blood 8.3 mg/dL (8.5-10.1); Chloride, Blood 105 mmol/L (98-108); Creatinine, Blood 4.14 mg/dL (0.60-1.20); Glomerular Filtration Rate 17 (60-); Glucose, Blood 120 mg/dL (70-99); Phosphorus, Blood 3.5 mg/dL (2.5-4.9); Sodium, Blood 139 mmol/L (136-145)
--- NOTE | 2024-10-04 06:16 | NUR ---
SHIFT SUMMARY PT RESTING QUIETLY AT THIS TIME. AWAKE OFF AND ON DURING THE NIGHT. SLEEP APENA NOTED WITH SPO2 DOWN INTO THE 70'S WHILE SLEEPING ON ROOMAIR. PLACED ON 3 LITERS O2 VIA NC. SPO2 GREATER THAN 92%. PT MOVING AND TURNING SELF IN BED. DIALYSIS CATH TO RIGHT CHEAST WALL WITH DRSG INTACT. PORTS CLAMPED. DRSG TO RIGHT FOOT CD&I. REPORT TO ON COMING NURSE
--- NOTE | 2024-10-04 11:15 | NUR ---
ASSUMED CARE OF PATIENT AT APPROXIMATELY 0700. REPORT RECEIVED FROM EARLENE KEANE. PT ASLEEP IN BED AT TIME OF BEDSIDE REPORT. CONTINOUS CARDIAC MONITORING IN PLACE SHOWS SR. ON 3LPM O2 VIA NC WITH O2 SATURATION > 92%. NO ACUTE NEEDS IDENTIFIED AT THIS TIME. SEE SHIFT ASSESSMENT FOR FULL DETAILS.
--- NOTE | 2024-10-04 18:10 | NUR ---
SHIFT SUMMARY PT REMAINED ALERT AND ORIENTED X 4 T/O ENTIRETY OF SHIFT. ABLE TO FOLLOW COMMANDS, MAKE PURPOSEFUL MOVEMENTS, AND MAKE NEEDS KNOWN. AFEBRILE AND DENIES PAIN. CONTINOUS CARDIAC MONITORING SHOWS SR WITH HR IN 70'S, BP STABLE. ON 3LPM O2 VIA NC c HS, OTHERWISE RA WITH O2 SATURATIONS > 92%. OVERNIGHT PULSE OXIMETRY ORDERED. NO BM THIS SHIFT. UTILIZES BEDSIDE URINAL. TOLERATING PO INTAKE WELL. DENIES N/V. PLAN FOR DIALYSIS TOMORROW AND DC AFTERWARDS IF APPROPRIATE. AT BEDSIDE AND UPDATED FREQUENTLY. WILL CONTINUE TO MONITOR AND REPORT TO ONCOMING RN.
--- NOTE | 2024-10-04 23:01 | NUR ---
UPDATE TRANSFERED CARE TO MED FLOOR GAVE REPORT TO MUKUL HENAO ON MED FLOOR @2140 AND TRANSFERED CARE TO MUKUL RN ON MED FLOOR @ 2250 (WAS WAITING FOR TELE BOX) ROOM 302.
--- NOTE | 2024-10-05 00:04 | NUR ---
PT ARRIVED FROM ICU AT 2250. SLEEP STUDY WAS IN PROGRESS PRIOR TO TRANSFER. RESPIRATORY THERAPY NOTIFIED OF PT'S TRANSFER FROM ICU. PT DENIES ANY CURRENT NEEDS. PT'S AT BEDSIDE. ROOM DARK WITH DOOR CLOSED FOR SLEEP STUDY.
[2024-10-05 06:08] VITALS: BP 140/69
--- NOTE | 2024-10-05 07:18 | NUR ---
SHIFT SUMMARY RECEIVED PT FROM ICU AT 2250, PT HAD ALREADY STARTED SLEEP STUDY WHILE IN THE ICU. DRESSING INTACT WITH SHADOW TO RIGHT FOOT. PT ABLE TO TRANSFER FROM WHEELCHAIR TO BED INDEPENDENTLY. AT BEDSIDE THROUGH THE NIGHT. PERMACATH SITE C/D/I TO RIGHT SUBCLAVIAN. DENIES COMPLAINTS. PT ANTICIPATING HD TODAY, THEN HOPES TO BE D/C'D HOME. BED IN LOWEST POSITION, CALL LIGHT WITHIN REACH, SIDERAILS UP X2.
[2024-10-05 07:36] VITALS: BP 126/71
--- NOTE | 2024-10-05 12:45 | NUR ---
PT WAS DISCHARGED WA MD ORDER WITH FOLLOW UP JIM FOR OUTPATIENT. PT AND HAD NO QUESTIONS OR CONCERNS WITH DISCHARGE INSTRUCTIONS/ ALL PIV'S REMOVED AND TELE BOX REMOVED,
[2024-10-06 07:24] LABS: QUANTIFERON MITOGEN MINUS NIL 7.11 IU/mL; QUANTIFERON NIL 2.89 IU/mL; QUANTIFERON PLUS TB1 MINUS NIL 7.11 IU/mL (<=0.34); QUANTIFERON PLUS TB2 MINUS NIL 7.11 IU/mL (<=0.34)
== END 2024-10-05 12:30 | disposition home or self-care (01) | DRG 673 ==
LOC: ER 19:18 → ICUE 22:07 → MEDS 10-04 22:55
PROVIDERS: Family Medicine; Hospitalist; Internal Medicine Nephrology; Student in an Organized Health Care Education/Training Program; ADMIT Student in an Organized Health Care Education/Training Program
PROC: 5A1D70Z Performance of Urinary Filtration, Intermittent, Less than 6 Hours Per Day (ICD-10-PCS; 2024-09-29)
PROC: 0JH63XZ Insertion of Tunneled Vascular Access Device into Chest Subcutaneous Tissue and Fascia, Percutaneous Approach (ICD-10-PCS; principal; 2024-10-02)
PROC: 02HV33Z Insertion of Infusion Device into Superior Vena Cava, Percutaneous Approach (ICD-10-PCS; 2024-10-02)
DX: N17.9 Acute kidney failure, unspecified (principal); G93.41 Metabolic encephalopathy; I12.0 Hypertensive chronic kidney disease with stage 5 chronic kidney disease or end stage renal disease; Z68.42 Body mass index [BMI] 45.0-49.9, adult; E87.5 Hyperkalemia; E11.22 Type 2 diabetes mellitus with diabetic chronic kidney disease; N18.6 End stage renal disease; E11.51 Type 2 diabetes mellitus with diabetic peripheral angiopathy without gangrene; E11.42 Type 2 diabetes mellitus with diabetic polyneuropathy; Z89.431 Acquired absence of right foot; Z89.432 Acquired absence of left foot; Z79.4 Long term (current) use of insulin; Z79.899 Other long term (current) drug therapy; Z79.84 Long term (current) use of oral hypoglycemic drugs; Z87.891 Personal history of nicotine dependence; E66.01 Morbid (severe) obesity due to excess calories; D63.1 Anemia in chronic kidney disease; E78.5 Hyperlipidemia, unspecified; E11.319 Type 2 diabetes mellitus with unspecified diabetic retinopathy without macular edema; F32.A Depression, unspecified; Z91.199 Patient's noncompliance with other medical treatment and regimen due to unspecified reason; L89.519 Pressure ulcer of right ankle, unspecified stage
CPT/HCPCS: 36415; 36556; 36558; 71045; 76937; 80047; 80048; 80053; 80069; 80074; 82330; 82947; 83036; 83540; 83550; 83605; 83735; 83880; 84100; 84484; 85014; 85025; 86480; 86704; 87428-QW; 93005; 93010; 93306; 94644; 94664; 94762; 96361-59; 96365-59; 96375-59; 96376-59; 99152; 99153; 99285-25; A9270; C1750; C1751; C1769; C1894; J0360; J0612; J1644; J1815; J2250; J3010; J3475; J7030; J7040; J7050; J7070; J7120; J7799; Q5106

== ENCOUNTER 2024-10-15 01:39 | Day surgery (SDC) | payer MEDICARE, OTHER ==
[~2024-10-15 01:39] MED LIST changes: +OMEP20ER PO; +TRADJENTA5 MG PO
== END 2024-10-15 23:00 | disposition home or self-care (01) ==
LOC: WOUND 01:39
DX: E11.621 Type 2 diabetes mellitus with foot ulcer (principal); L97.412 Non-pressure chronic ulcer of right heel and midfoot with fat layer exposed; E11.42 Type 2 diabetes mellitus with diabetic polyneuropathy; I10 Essential (primary) hypertension; E78.5 Hyperlipidemia, unspecified; Z89.422 Acquired absence of other left toe(s); Z89.431 Acquired absence of right foot

== ENCOUNTER 2024-10-22 09:30 | Day surgery (SDC) | payer MEDICARE, OTHER | END 2024-10-22 23:00 | disposition home or self-care (01) | LOC: WOUND 09:30 | DX: E11.621 Type 2 diabetes mellitus with foot ulcer (principal); L97.412 Non-pressure chronic ulcer of right heel and midfoot with fat layer exposed; E11.42 Type 2 diabetes mellitus with diabetic polyneuropathy; I10 Essential (primary) hypertension; E78.5 Hyperlipidemia, unspecified | CPT/HCPCS: G0463 ==

== ENCOUNTER 2024-10-31 02:24 | Day surgery (SDC) | payer MEDICARE, OTHER | END 2024-10-31 23:00 | disposition home or self-care (01) | LOC: WOUND 02:24 | DX: E11.621 Type 2 diabetes mellitus with foot ulcer (principal); L97.419 Non-pressure chronic ulcer of right heel and midfoot with unspecified severity; E11.42 Type 2 diabetes mellitus with diabetic polyneuropathy; I10 Essential (primary) hypertension; E78.5 Hyperlipidemia, unspecified | CPT/HCPCS: G0463 ==

== ENCOUNTER 2024-11-07 10:06 | Day surgery (SDC) | payer MEDICARE, OTHER ==
[~2024-11-07] VITALS: Ht 175.3 cm; Wt 140.6 kg
[2024-11-07 10:33] VITALS: BP 163/95
[2024-11-07] MEDS ORDERED: NS 250 ML IV ONE (12:28)
[2024-11-07] MEDS ORDERED: Heparin Sodium 1000 Units/ML 10ML MDV ONE (12:28)
[2024-11-07] MEDS ORDERED: NS 500 ML IV ONE (12:54)
[2024-11-07] MEDS ORDERED: Midazolam HCl 1MG / ML 2ML Vial ONE (12:54)
[2024-11-07] MEDS ORDERED: FentaNYL Citrate 50 MCG/ML 2 ML Injection ONE (12:54)
[2024-11-07] MEDS ORDERED: Heparin Sodium 10,000 Units/ML 1ML MDV ONE (13:23)
[2024-11-07 13:43] VITALS: BP 133/75
[2024-11-07 13:45] VITALS: BP 136/80
--- NOTE | 2024-11-07 13:45 | NUR ---
ASSUMED CARE OF PT POST PROCEDURE. PT DROWSY, BUT ROUSES TO VERBAL STIMULI, ORIENTED; FALLS BACK TO SLEEP WHEN LEFT ALONE. MONITOR SR 60'S, B/P 136/80, SPO2 82% RA-PLACED ON 4L NC 90-93%. R CHEST PERMCATH SITE NO SWELLING/HEMATOMA, TEGADERM DRSG INTACT.
[2024-11-07 14:00] VITALS: BP 140/82
[2024-11-07 14:15] VITALS: BP 141/81
--- NOTE | 2024-11-07 14:20 | NUR ---
PT'S OXYGEN WEANED OFF, SPO2 93-95%.
[2024-11-07 14:30] VITALS: BP 138/84
--- NOTE | 2024-11-07 14:42 | NUR ---
PT ALERT AND ORIENTED. PT SITTING UP EATING. CHANGED INTO CLOTHES. IV D/C CATHETER INTACT. PT VERBALIZE D/C INSTRUCTIONS. [place], SPOUSE CALLED AND IS ON HER WAY.
--- NOTE | 2024-11-07 15:02 | NUR ---
REVIEWED DISCHARGE INSTRUCTIONS, MED LIST AND AFTER CARE INSTRUCTIONS WITH PT AND LIFE PARTNER; VERBALIZED GOOD UNDERSTANDING. PT LEFT FACILITY VIA W/C, CONDITION STABLE.
== END 2024-11-07 15:50 | disposition home or self-care (01) ==
LOC: MHTC 10:06
DX: T82.41XA Breakdown (mechanical) of vascular dialysis catheter, initial encounter (principal); E11.22 Type 2 diabetes mellitus with diabetic chronic kidney disease; I12.0 Hypertensive chronic kidney disease with stage 5 chronic kidney disease or end stage renal disease; N18.6 End stage renal disease; E78.5 Hyperlipidemia, unspecified; E11.40 Type 2 diabetes mellitus with diabetic neuropathy, unspecified; Z79.4 Long term (current) use of insulin; Z79.899 Other long term (current) drug therapy; Z88.8 Allergy status to other drugs, medicaments and biological substances; Z89.429 Acquired absence of other toe(s), unspecified side; Z99.2 Dependence on renal dialysis; Y84.8 Other medical procedures as the cause of abnormal reaction of the patient, or of later complication, without mention of misadventure at the time of the procedure
CPT/HCPCS: 36581; 37799; 77001; 99152; C1725; C1750; C1769; J1644; J2250; J3010; J7040; J7050; Q9967

== ENCOUNTER 2025-03-27 07:08 | Day surgery (SDC) | payer MEDICARE, OTHER ==
[~2025-03-27] VITALS: Ht 175.3 cm; Wt 302.0 kg
[~2025-03-27 07:08] MED LIST changes: +ACET500 PO; +VITAMIN D5000 UNIT PO
[2025-03-27] MEDS ORDERED: NS 1,000 ML IV ONE ×2 (07:22→07:50)
[2025-03-27] MEDS ORDERED: Verapamil HCL 2.5 MG/ML 2ML Injection ONE (07:22)
[2025-03-27] MEDS ORDERED: Heparin Sodium 1000 Units/ML 10ML MDV ONE (07:22)
[2025-03-27] MEDS ORDERED: Nitroglycerin 2 MG/20 ML BTL ONE (07:24)
[2025-03-27 07:38] VITALS: BP 152/91
[2025-03-27] MEDS ORDERED: FentaNYL Citrate 50 MCG/ML 2 ML Injection ONE (07:50)
[2025-03-27] MEDS ORDERED: Midazolam HCl 1MG / ML 2ML Vial ONE (07:50)
[2025-03-27 09:21] VITALS: BP 148/94
[2025-03-27 09:30] VITALS: BP 140/94
--- NOTE | 2025-03-27 09:39 | NUR ---
Patient to recovery room at 0922 s/p attempted Ellipsys procedure. Attempted access to right brachial vein, bandaid in place, area soft w/o swelling or bleeding. Patient arrived sleeping, arouses to loud voice, follow commands. supplemental o2 placed while sleeping. VSS. Patients at bedside awaiting update from Dr. Carney.
[2025-03-27 09:45] VITALS: BP 144/88
[2025-03-27 10:00] VITALS: BP 139/91
--- NOTE | 2025-03-27 10:24 | NUR ---
Patient wide awake and denies complaints. Patient ate 100% of breakfast. Dr. Carney in to update patient and pt's Sarah. Patient OOB to chair, dixie well. Verbal and written discharge instructions given to patient and pt's with clear understanding. Patient dc'd via wheelchair w/ escort volunteer at 1035 in stable condition.
--- NOTE | 2025-03-27 10:29 | NUR ---
sling placed to right arm
== END 2025-03-27 10:58 | disposition home or self-care (01) ==
LOC: MHTC 07:08
DX: I12.0 Hypertensive chronic kidney disease with stage 5 chronic kidney disease or end stage renal disease (principal); N18.6 End stage renal disease; E11.22 Type 2 diabetes mellitus with diabetic chronic kidney disease; E11.40 Type 2 diabetes mellitus with diabetic neuropathy, unspecified; E78.5 Hyperlipidemia, unspecified; Z79.899 Other long term (current) drug therapy; Z88.8 Allergy status to other drugs, medicaments and biological substances; Z79.4 Long term (current) use of insulin
CPT/HCPCS: 36836; 64415; 76937; 82947; 99152; 99153; J1644; J2250; J3010; J7030

== ENCOUNTER 2025-05-09 08:48 | Observation (INO) | payer MEDICARE, OTHER ==
[~2025-05-09] VITALS: Ht 175.3 cm; Wt 136.0 kg
[2025-05-09 09:44] LABS: BASOPHILS ABSOLUTE AUTO 0.04 K/mm3 (0.00-0.23); BASOPHILS PERCENT AUTO 1 % (0-2); EOSINOPHILS ABSOLUTE AUTO 0.21 K/mm3 (0.00-0.68); EOSINOPHILS PERCENT AUTO 2 % (0-6); Hematocrit 34.0 % (37.0-53.0); Hemoglobin 11.7 g/dL (13.5-17.5); IMMATURE GRAN ABSOLUTE AUTO 0.04 K/mm3 (0.00-0.10); IMMATURE GRAN PERCENT AUTO 1 % (0-1); LYMPHOCYTES ABSOLUTE AUTO 3.39 K/mm3 (0.84-5.20); LYMPHOCYTES PERCENT AUTO 39 % (21-46); MONOCYTES ABSOLUTE AUTO 0.52 K/mm3 (0.16-1.47); MONOCYTES PERCENT AUTO 6 % (4-13); Mean Corpuscular HGB Conc 34.4 g/dL (31.5-36.5); Mean Corpuscular Volume 93 fL (80-100); NEUTROPHILS ABSOLUTE AUTO 4.51 K/mm3 (1.96-9.15); NEUTROPHILS PERCENT AUTO 52 % (41-73); NRBC ABSOLUTE 0.00 K/mm3 (0.00-0.02); NRBC Auto 0.0 /100 WBC (0.0-0.2); Platelet Count 252 K/mm3 (150-400); RDW Coefficient Variation 12.8 % (11.7-14.2); RDW Standard Deviation 43.9 fL (35.1-46.3)
[2025-05-09 10:09] LABS: Alanine Aminotransfer (ALT/SGP 28.0 U/L (12-78); Albumin, Blood 2.8 g/dL (3.4-5.0); Albumin/Globulin Ratio 0.7 (0.8-1.8); Anion Gap 8.0 mmol/L (3-11); Aspartate Aminotrans (AST/SGOT 18.0 U/L (12-37); Bilirubin, Total 0.6 mg/dL (0.1-1.0); Blood Urea Nitrogen 39.0 mg/dL (8-24); CO2, Blood 25.0 mmol/L (21-32); Calcium, Blood 7.9 mg/dL (8.5-10.1); Chloride, Blood 106.0 mmol/L (98-108); Creatinine, Blood 3.99 mg/dL (0.60-1.20); Globulin, Blood 4.0 g/dL (2.2-4.0); Glucose, Blood 346.0 mg/dL (70-99); Potassium, Blood 4.4 mmol/L (3.5-5.5); Sodium, Blood 135.0 mmol/L (136-145); Total Protein, Blood 6.8 g/dL (6.4-8.2)
[2025-05-09] MEDS ORDERED: NEURONTIN300 MG PO (10:14)
[2025-05-09 10:18] LABS: Prothrombin Time Results 11.6 Sec (9.7-11.5)
[2025-05-09] MEDS ORDERED: Heparin Sodium,Porcine 5,000 UNIT/0.5 ML SDV SC SCH (14:00)
[2025-05-09] MEDS ORDERED: NS 500 ML IV ONE ×2 (15:47→16:12)
[2025-05-09] MEDS ORDERED: Heparin Sodium 1000 Units/ML 10ML MDV ONE (15:47)
--- NOTE | 2025-05-09 16:18 | NUR ---
CALLED AND GOT REPORT FROM THE ER ON THE PATIENT. SWORD SWALLOWER CALLED TO HAVE PATIENT BE SENT TO THEM PRIOR TO COMING TO ROOM AND THEY WILL BRING HIM UP AFTERWARDS. MET PATIENT/TRANSPORTER AT [facility] AND DIRECTED THEM TO SWORD SWALLOWER. FRANC AND OTHER BELONGINGS FROM PATIENT PLACED IN ROOM 357.
[2025-05-09] MEDS ORDERED: Midazolam HCl 1MG / ML 2ML Vial ONE ×2 (16:29→16:53)
[2025-05-09] MEDS ORDERED: FentaNYL Citrate 50 MCG/ML 2 ML Injection ONE ×2 (16:29→17:31)
[2025-05-09] MEDS ORDERED: HydrALAZINE HCl 20 MG / ML 1ML Vial ONE (16:47)
[2025-05-09] MEDS ORDERED: NS 1,000 ML IV ONE (17:18)
[2025-05-09 18:29] VITALS: BP 116/73
--- NOTE | 2025-05-09 18:54 | NUR ---
ADMISSION NOTE: PATIENT ARRIVED TO THE UNIT FROM THE MEDICAL LABORATORY SCIENTIST FOR PERMACATH REPLACEMENT AT 1813. PATIENT TRANSFERRED FROM [facility] TO BED. PATIENT LETHARGIC, BUT ABLE TO SPEAK AND ANSWER QUESTIONS/MAKE NEEDS KNOWN. PATIENT HAD A BOWEL MOVEMENT ON THE BEDPAN; REPORTS HE DOES NOT VOID. TELE PLACED; SINUS RHYTHM AT 65, IV ASSESS; PATENT. PERMACATH SITE AND R VENOUS GROIN SITE ASSESSED WITH MEDICAL LABORATORY SCIENTIST RN AND ADDITIONAL MEDICAL RN. SITES WNL; NO ACTIVE OOZING. PATIENT SETTLED IN ROOM, AT BEDSIDE, CALL LIGHT PROVIDED, NO SIGNS OR SYMPTOMS OF DISTRESS, PLAN OF CARE ONGOING; SPOKE WITH HD RN; PLAN TO HAVE HD IN THE MORNING.
[2025-05-09] MEDS ORDERED: Insulin Glargine,Hum.Rec.Anlog 100 UNIT/ML 3MLSYR SC SCH (21:00)
[2025-05-09 23:40] VITALS: BP 154/89
[2025-05-10] VITALS (19 sets, daily range): BP systolic 102–164; BP diastolic 54–97
[2025-05-10 04:36] LABS: BASOPHILS ABSOLUTE AUTO 0.02 K/mm3 (0.00-0.23); BASOPHILS PERCENT AUTO 0 % (0-2); EOSINOPHILS ABSOLUTE AUTO 0.13 K/mm3 (0.00-0.68); EOSINOPHILS PERCENT AUTO 2 % (0-6); Hematocrit 29.2 % (37.0-53.0); Hemoglobin 9.9 g/dL (13.5-17.5); IMMATURE GRAN ABSOLUTE AUTO 0.03 K/mm3 (0.00-0.10); IMMATURE GRAN PERCENT AUTO 0 % (0-1); LYMPHOCYTES ABSOLUTE AUTO 2.20 K/mm3 (0.84-5.20); LYMPHOCYTES PERCENT AUTO 32 % (21-46); MONOCYTES ABSOLUTE AUTO 0.33 K/mm3 (0.16-1.47); MONOCYTES PERCENT AUTO 5 % (4-13); Mean Corpuscular HGB Conc 33.9 g/dL (31.5-36.5); Mean Corpuscular Volume 94 fL (80-100); NEUTROPHILS ABSOLUTE AUTO 4.08 K/mm3 (1.96-9.15); NEUTROPHILS PERCENT AUTO 60 % (41-73); NRBC ABSOLUTE 0.00 K/mm3 (0.00-0.02); NRBC Auto 0.0 /100 WBC (0.0-0.2); Platelet Count 202 K/mm3 (150-400); RDW Coefficient Variation 12.9 % (11.7-14.2); RDW Standard Deviation 44.2 fL (35.1-46.3)
[2025-05-10 05:10] LABS: Alanine Aminotransfer (ALT/SGP 28.0 U/L (12-78); Albumin, Blood 2.5 g/dL (3.4-5.0); Albumin/Globulin Ratio 0.7 (0.8-1.8); Anion Gap 9.0 mmol/L (3-11); Aspartate Aminotrans (AST/SGOT 30.0 U/L (12-37); Bilirubin, Total 0.7 mg/dL (0.1-1.0); Blood Urea Nitrogen 41.0 mg/dL (8-24); CO2, Blood 22.0 mmol/L (21-32); Calcium, Blood 7.5 mg/dL (8.5-10.1); Chloride, Blood 110.0 mmol/L (98-108); Creatinine, Blood 3.67 mg/dL (0.60-1.20); Globulin, Blood 3.8 g/dL (2.2-4.0); Glucose, Blood 220.0 mg/dL (70-99); Potassium, Blood 4.6 mmol/L (3.5-5.5); Sodium, Blood 136.0 mmol/L (136-145); Total Protein, Blood 6.3 g/dL (6.4-8.2)
--- NOTE | 2025-05-10 05:17 | NUR ---
PT A&O X4, VS WNL, DENIES PAIN, SMALL VOID X1, PO INTAKE WNL, NEW PERMCATH WNL, AND RIGHT GROIN WITHOUT COMPLICATIONS. PLAN TO HAVE HD TODAY, AND POTENTIALY HOME AFTER.
[2025-05-10] MEDS ORDERED: Cholecalciferol 1000 Unit Tablet (=25MCG) PO SCH (09:00)
--- NOTE | 2025-05-10 15:20 | NUR ---
DISCHARGE NOTE: PATIENT'S IV, TELE, AND CLOSURE DEVICE OF R GROIN REMOVED; NO OOZING, GAUZE AND TEGADERM DRESSING APPLIED. PATIENT'S CAME AND GOT HIM FOR DISCHARGE; SIGNED HIS DISCHARGE PAPER PER PATIENT REQUEST. NO SIGNS OR SYMPTOMS OF DISTRESS DURING DISCHARGE.
[2025-05-12 15:15] VITALS: BP 172/89
== END 2025-05-10 15:00 | disposition home or self-care (01) ==
LOC: ER 08:48 → ERHOLD 08:49 → MEDS 08:49
PROVIDERS: Student in an Organized Health Care Education/Training Program; ADMIT Internal Medicine
DX: T82.42XA Displacement of vascular dialysis catheter, initial encounter (principal); I12.0 Hypertensive chronic kidney disease with stage 5 chronic kidney disease or end stage renal disease; E11.22 Type 2 diabetes mellitus with diabetic chronic kidney disease; N18.6 End stage renal disease; I87.8 Other specified disorders of veins; E11.42 Type 2 diabetes mellitus with diabetic polyneuropathy; E78.5 Hyperlipidemia, unspecified; E66.9 Obesity, unspecified; Z68.41 Body mass index [BMI] 40.0-44.9, adult; Z87.891 Personal history of nicotine dependence; Z79.4 Long term (current) use of insulin; Z79.899 Other long term (current) drug therapy; Z88.8 Allergy status to other drugs, medicaments and biological substances; Z99.2 Dependence on renal dialysis; Y81.3 Surgical instruments, materials and general- and plastic-surgery devices (including sutures) associated with adverse incidents
CPT/HCPCS: 36415; 36581; 37187; 75827; 76937; 77001; 80053; 82947; 85025; 85610; 85730; 96372; 96374; 99152; 99153; 99285-25; A9270; C1725; C1750; C1757; C1769; C1773; C1887; G0257; G0378; J0360; J1644; J2250; J3010; J7030; J7040; Q9967